=== PATIENT | male | born 1950 | race Two or more races ===

== ENCOUNTER 2019-11-06 00:15 | Inpatient (IN) | payer MEDICAID ==
[~2019-11-06] VITALS: Ht 170.2 cm; Wt 62.4 kg
[~2019-11-06 00:15] MED LIST: ASPI81TA39 PO; FERR-89 PO; INSU100C4 SQ; NOCURR; OMEP20 PO; VICOT
[2019-11-06 01:24] LABS: GLUCOSE,POINT OF CARE 49 MG/DL (70-110)
[2019-11-06] MEDS ORDERED: DEXTROSE 50%-WATER 25 GM/50 ML SYRINGE IVP ONE ×2 (01:27→02:30)
[2019-11-06 02:24] LABS: BASOPHILS % (AUTO) 0.8 % (0.0-2.0); EOSINOPHILS % (AUTO) 2.6 % (1.0-6.0); HEMATOCRIT 35.1 % (41-53); HEMOGLOBIN 11.7 g/dL (13.5-17.5); LYMPHOCYTES # (AUTO) 1.9 K/uL (1.0-4.8); LYMPHOCYTES % (AUTO) 22.5 % (22.0-44.0); MEAN CORPUSCULAR HEMOGLOBIN 28.9 pg (26.0-34.0); MEAN CORPUSCULAR HGB CONC 33.3 G/dL (31.0-37.0); MEAN CORPUSCULAR VOLUME 87 fL (80-100); MONOCYTES # (AUTO) 0.4 K/uL (0.1-1.0); MONOCYTES % (AUTO) 5.3 % (2.0-9.0); NEUTROPHILS # (AUTO) 5.7 K/uL (1.8-7.7); NEUTROPHILS % (AUTO) 68.8 % (40.0-70.0); PLATELET COUNT (AUTO) 231 K/uL (150-450); RED BLOOD CELL COUNT(AUTO) 4.04 MIL/uL (4.50-5.90); RED CELL DISTRIBUTION WIDTH 14.2 % (11.5-14.5)
[2019-11-06 02:28] LABS: GLUCOSE,POINT OF CARE 155 MG/DL (70-110)
[2019-11-06 02:33] LABS: CALCIUM, TOTAL 8.3 mg/dL (8.8-10.5); CREATININE 1.5 mg/dL (0.60-1.30); POTASSIUM 5.1 mmol/L (3.5-5.1)
[2019-11-06 02:36] LABS: PROTHROMBIN TIME 10.1 SEC (9.4-11.6)
[2019-11-06 02:57] LABS: ALBUMIN 3.3 g/dL (3.4-5.0); BILIRUBIN,TOTAL 0.3 mg/dL (0.1-1.0); TOTAL PROTEIN, SERUM 7.3 g/dL (6.4-8.2)
[2019-11-06] MEDS ORDERED: ASPIRIN 325 MG TABLET PO ONE (03:30)
[2019-11-06] MEDS ORDERED: 0.9% SODIUM CHLORIDE 10 ML SYRINGE IVP PRN (03:45)
[2019-11-06] MEDS ORDERED: ONDANSETRON HCL 4 MG/2 ML VIAL IVP PRN (03:45)
[2019-11-06] MEDS ORDERED: ACETAMINOPHEN 325 MG TABLET PO PRN ×2 (03:45→15:15)
[2019-11-06 05:18] LABS: GLUCOSE,POINT OF CARE 106 MG/DL (70-110)
[2019-11-06 09:46] LABS: GLUCOSE,POINT OF CARE 79 MG/DL (70-110)
[2019-11-06 12:11] LABS: GLUCOSE,POINT OF CARE 122 MG/DL (70-110)
[2019-11-06] MEDS ORDERED: NITROGLYCERIN 0.4 MG SUBLINGUAL TABLET #25 SL PRN (15:15)
[2019-11-06] MEDS ORDERED: NITROGLYCERIN 2% (1 GM=INCH) PACKET TP PRN (15:15)
[2019-11-06 16:03] VITALS: BP 151/73
[2019-11-06] MEDS: ASPIRIN 81 MG CHEWABLE TABLET PO SCH (16:08)
[2019-11-06] MEDS: DOCUSATE SODIUM 100 MG CAPSULE PO SCH (16:09)
[2019-11-06] MEDS ORDERED: PNEUMOCOCCAL VACCINE POLYVALENT 0.5 ML VIAL [PPSV23] IM ONE (19:30)
[2019-11-06 20:00] VITALS: BP 143/71
[2019-11-06 20:01] LABS: GLUCOMETER DEV NAME(LOC) 5S.2A; GLUCOSE,POINT OF CARE 101 MG/DL (70-110)
[2019-11-07] VITALS (7 sets, daily range): BP systolic 113–147; BP diastolic 51–63
[2019-11-07 00:25] LABS: AMPHET/METH SCREEN,URINE NEGATIVE (NEGATIVE); BARBITURATE SCREEN, URINE NEGATIVE (NEGATIVE); BENZODIAZEPINES SCREEN,URINE NEGATIVE (NEGATIVE); CANNABINOID SCREEN,URINE NEGATIVE (NEGATIVE); COCAINE SCREEN,URINE NEGATIVE (NEGATIVE); METHADONE SCREEN, URINE NEGATIVE (NEGATIVE); OPIATE SCREEN,URINE NEGATIVE (NEGATIVE); PHENCYCLIDINE SCREEN,URINE NEGATIVE (NEGATIVE)
[2019-11-07 01:13] LABS: GLUCOMETER DEV NAME(LOC) 5S.2A; GLUCOSE,POINT OF CARE 185 MG/DL (70-110)
[2019-11-07 06:05] LABS: GLUCOMETER DEV NAME(LOC) 5N.2; GLUCOSE,POINT OF CARE 117 MG/DL (70-110)
[2019-11-07 07:20] LABS: HEMOGLOBIN A1C 6.5 % (3.8-5.6)
[2019-11-07 07:22] LABS: BASOPHILS % (AUTO) 1.1 % (0.0-2.0); EOSINOPHILS % (AUTO) 6.9 % (1.0-6.0); HEMATOCRIT 30.1 % (41-53); LYMPHOCYTES # (AUTO) 3.1 K/uL (1.0-4.8); LYMPHOCYTES % (AUTO) 41.8 % (22.0-44.0); MEAN CORPUSCULAR HEMOGLOBIN 29.3 pg (26.0-34.0); MEAN CORPUSCULAR HGB CONC 33.4 G/dL (31.0-37.0); MEAN CORPUSCULAR VOLUME 88 fL (80-100); MONOCYTES # (AUTO) 0.6 K/uL (0.1-1.0); MONOCYTES % (AUTO) 8.3 % (2.0-9.0); NEUTROPHILS # (AUTO) 3.1 K/uL (1.8-7.7); NEUTROPHILS % (AUTO) 41.9 % (40.0-70.0); PLATELET COUNT (AUTO) 205 K/uL (150-450); RED BLOOD CELL COUNT(AUTO) 3.43 MIL/uL (4.50-5.90); RED CELL DISTRIBUTION WIDTH 14.2 % (11.5-14.5)
[2019-11-07 07:36] LABS: CALCIUM, TOTAL 8.2 mg/dL (8.8-10.5); CHOL/HDL RATIO 2.5 (4.2-7.3); CREATININE 1.55 mg/dL (0.60-1.30); POTASSIUM 4.7 mmol/L (3.5-5.1)
[2019-11-07] MEDS: ASPIRIN 81 MG CHEWABLE TABLET PO SCH (09:07)
[2019-11-07] MEDS: DOCUSATE SODIUM 100 MG CAPSULE PO SCH (09:07)
[2019-11-07 20:25] LABS: GLUCOMETER DEV NAME(LOC) 5S.2A; GLUCOSE,POINT OF CARE 162 MG/DL (70-110)
[2019-11-08 04:30] VITALS: BP 145/84
[2019-11-08 07:01] LABS: BASOPHILS % (AUTO) 0.9 % (0.0-2.0); EOSINOPHILS % (AUTO) 8.5 % (1.0-6.0); HEMATOCRIT 31.1 % (41-53); HEMOGLOBIN 10.4 g/dL (13.5-17.5); LYMPHOCYTES # (AUTO) 3.2 K/uL (1.0-4.8); LYMPHOCYTES % (AUTO) 40.1 % (22.0-44.0); MEAN CORPUSCULAR HEMOGLOBIN 29.2 pg (26.0-34.0); MEAN CORPUSCULAR HGB CONC 33.5 G/dL (31.0-37.0); MEAN CORPUSCULAR VOLUME 87 fL (80-100); MONOCYTES # (AUTO) 0.7 K/uL (0.1-1.0); MONOCYTES % (AUTO) 8.1 % (2.0-9.0); NEUTROPHILS # (AUTO) 3.4 K/uL (1.8-7.7); NEUTROPHILS % (AUTO) 42.4 % (40.0-70.0); PLATELET COUNT (AUTO) 206 K/uL (150-450); RED BLOOD CELL COUNT(AUTO) 3.57 MIL/uL (4.50-5.90); RED CELL DISTRIBUTION WIDTH 13.8 % (11.5-14.5)
[2019-11-08 07:18] VITALS: BP 115/52
[2019-11-08 07:24] LABS: CALCIUM, TOTAL 8.1 mg/dL (8.8-10.5); CREATININE 1.39 mg/dL (0.60-1.30); POTASSIUM 4.4 mmol/L (3.5-5.1)
[2019-11-08] MEDS: MULTIVITAMINS WITH MINERALS, THERAPEUTIC TABLET PO SCH (09:55)
[2019-11-08] MEDS: DOCUSATE SODIUM 100 MG CAPSULE PO SCH (09:56)
[2019-11-08] MEDS: ASPIRIN 81 MG CHEWABLE TABLET PO SCH (09:56)
[2019-11-08 11:11] VITALS: BP 150/70
[2019-11-08 15:42] VITALS: BP 151/67
[2019-11-08 18:17] LABS: APPEARANCE,URINE CLEAR (CLEAR); BILIRUBIN,URINE NEGATIVE (NEGATIVE); GLUCOSE, URINE (UA) NEGATIVE (NEGATIVE); KETONES,URINE NEGATIVE (NEGATIVE); LEUKOCYTE ESTERASE ,URINE NEGATIVE (NEGATIVE); NITRATE,URINE NEGATIVE (NEGATIVE); OCCULT BLOOD,URINE NEGATIVE (NEGATIVE); PROTEIN,URINE SEE CONFIRM (NEGATIVE); UROBILINOGEN,URINE 0.2 mg/dL (<=1.0)
[2019-11-08 18:34] LABS: SULFOSALICYLIC ACID,URINE 4+ (Negative)
[2019-11-08 18:35] LABS: BACTERIA,URINE None Seen /HPF (None Seen); RBC,URINE None Seen /HPF (0-2); SQUAMOUS EPITHELIAL CELL,UR Rare /LPF (None Seen); WBC,URINE None Seen /HPF (0-5)
[2019-11-08 19:31] LABS: GLUCOMETER DEV NAME(LOC) 5S.2A; GLUCOSE,POINT OF CARE 190 MG/DL (70-110)
[2019-11-08 19:31] LABS: GLUCOMETER DEV NAME(LOC) 5N.2; GLUCOSE,POINT OF CARE 110 MG/DL (70-110)
[2019-11-08 20:08] VITALS: BP 136/61
[2019-11-08 20:15] VITALS: BP 133/68
[2019-11-08 21:39] LABS: GLUCOMETER DEV NAME(LOC) 5S.2A; GLUCOSE,POINT OF CARE 174 MG/DL (70-110)
[2019-11-09] VITALS (11 sets, daily range): BP systolic 113–173; BP diastolic 44–72
[2019-11-09 06:41] LABS: HEMATOCRIT 30.2 % (41-53); HEMOGLOBIN 10.1 g/dL (13.5-17.5); LYMPHOCYTES # (AUTO) 3.3 K/uL (1.0-4.8); LYMPHOCYTES % (AUTO) 42.1 % (22.0-44.0); MEAN CORPUSCULAR HEMOGLOBIN 29.1 pg (26.0-34.0); MEAN CORPUSCULAR HGB CONC 33.3 G/dL (31.0-37.0); MEAN CORPUSCULAR VOLUME 87 fL (80-100); MONOCYTES # (AUTO) 0.5 K/uL (0.1-1.0); NEUTROPHILS # (AUTO) 3.3 K/uL (1.8-7.7); NEUTROPHILS % (AUTO) 41.9 % (40.0-70.0); PLATELET COUNT (AUTO) 200 K/uL (150-450); RED BLOOD CELL COUNT(AUTO) 3.47 MIL/uL (4.50-5.90); RED CELL DISTRIBUTION WIDTH 14.1 % (11.5-14.5)
[2019-11-09 07:05] LABS: GLUCOMETER DEV NAME(LOC) 5S.2A; GLUCOSE,POINT OF CARE 97 MG/DL (70-110)
[2019-11-09 07:18] LABS: CALCIUM, TOTAL 8.3 mg/dL (8.8-10.5); CREATININE 1.76 mg/dL (0.60-1.30); MAGNESIUM 2.4 mg/dL (1.80-2.40)
[2019-11-09] MEDS: DOCUSATE SODIUM 100 MG CAPSULE PO SCH (09:00)
[2019-11-09] MEDS: ASPIRIN 81 MG CHEWABLE TABLET PO SCH (09:21)
[2019-11-09] MEDS: MULTIVITAMINS WITH MINERALS, THERAPEUTIC TABLET PO SCH (09:22)
[2019-11-09] MEDS ORDERED: SESTAMIBI TC99M/UD ISOTOPE 1 EA INJ INJ ONE ×2 (09:50→13:10)
[2019-11-09] MEDS ORDERED: REGADENOSON 0.4 MG/5 ML PF SYRINGE IVP ONE ×2 (12:59→17:19)
[2019-11-09] MEDS ORDERED: INSLAN SQ (14:10)
[2019-11-09] MEDS: SODIUM CHLORIDE 0.45% 1,000 ML IV SCH (16:26)
[2019-11-10 00:51] VITALS: BP 127/62
[2019-11-10 04:11] VITALS: BP 129/64
[2019-11-10] MEDS: SODIUM CHLORIDE 0.45% 1,000 ML IV SCH ×2 (05:05→17:25)
[2019-11-10 06:52] LABS: BASOPHILS % (AUTO) 0.8 % (0.0-2.0); EOSINOPHILS % (AUTO) 7.6 % (1.0-6.0); HEMATOCRIT 28.3 % (41-53); HEMOGLOBIN 9.6 g/dL (13.5-17.5); LYMPHOCYTES # (AUTO) 2.7 K/uL (1.0-4.8); LYMPHOCYTES % (AUTO) 36.7 % (22.0-44.0); MEAN CORPUSCULAR HEMOGLOBIN 29.5 pg (26.0-34.0); MEAN CORPUSCULAR HGB CONC 33.9 G/dL (31.0-37.0); MEAN CORPUSCULAR VOLUME 87 fL (80-100); MONOCYTES # (AUTO) 0.5 K/uL (0.1-1.0); MONOCYTES % (AUTO) 7.5 % (2.0-9.0); NEUTROPHILS # (AUTO) 3.4 K/uL (1.8-7.7); NEUTROPHILS % (AUTO) 47.4 % (40.0-70.0); PLATELET COUNT (AUTO) 190 K/uL (150-450); RED BLOOD CELL COUNT(AUTO) 3.24 MIL/uL (4.50-5.90); RED CELL DISTRIBUTION WIDTH 14.1 % (11.5-14.5)
[2019-11-10 07:07] LABS: ALBUMIN 2.5 g/dL (3.4-5.0); BILIRUBIN,TOTAL 0.2 mg/dL (0.1-1.0); CALCIUM, TOTAL 7.9 mg/dL (8.8-10.5); CREATININE 1.49 mg/dL (0.60-1.30); POTASSIUM 4.5 mmol/L (3.5-5.1); TOTAL PROTEIN, SERUM 5.8 g/dL (6.4-8.2)
[2019-11-10 07:25] VITALS: BP 153/78
[2019-11-10 07:27] LABS: GLUCOMETER DEV NAME(LOC) 5N.2; GLUCOSE,POINT OF CARE 103 MG/DL (70-110)
[2019-11-10 07:28] LABS: GLUCOMETER DEV NAME(LOC) 5N.2; GLUCOSE,POINT OF CARE 200 MG/DL (70-110)
[2019-11-10] MEDS: MULTIVITAMINS WITH MINERALS, THERAPEUTIC TABLET PO SCH (08:40)
[2019-11-10] MEDS: DOCUSATE SODIUM 100 MG CAPSULE PO SCH (08:40)
[2019-11-10] MEDS: ASPIRIN 81 MG CHEWABLE TABLET PO SCH (08:40)
[2019-11-10 10:58] VITALS: BP 148/66
[2019-11-10 12:27] LABS: GLUCOMETER DEV NAME(LOC) 5S.2A; GLUCOSE,POINT OF CARE 225 MG/DL (70-110)
[2019-11-10 16:12] VITALS: BP 151/76
== END 2019-11-10 19:25 | disposition home or self-care (01) | DRG 313 ==
LOC: EMS 00:15 → ICU 03:30 → 5N 03:30 → UNDOADMIN 03:30 → 5S 15:35
PROVIDERS: ADMIT Internal Medicine; ATTEND Internal Medicine
PROC: 3E0234Z Introduction of Serum, Toxoid and Vaccine into Muscle, Percutaneous Approach (ICD-10-PCS; 2019-11-06)
PROC: 4A02XM4 Measurement of Cardiac Total Activity, External Approach (ICD-10-PCS; principal; 2019-11-09)
DX: R07.89 Other chest pain (principal); N17.9 Acute kidney failure, unspecified; E44.0 Moderate protein-calorie malnutrition; E11.649 Type 2 diabetes mellitus with hypoglycemia without coma; N18.3 Chronic kidney disease, stage 3 (moderate); K21.9 Gastro-esophageal reflux disease without esophagitis; D64.9 Anemia, unspecified; E86.0 Dehydration; E78.00 Pure hypercholesterolemia, unspecified; F17.210 Nicotine dependence, cigarettes, uncomplicated; E78.5 Hyperlipidemia, unspecified; I12.9 Hypertensive chronic kidney disease with stage 1 through stage 4 chronic kidney disease, or unspecified chronic kidney disease; E11.22 Type 2 diabetes mellitus with diabetic chronic kidney disease; F10.10 Alcohol abuse, uncomplicated; Y90.9 Presence of alcohol in blood, level not specified; Z68.21 Body mass index [BMI] 21.0-21.9, adult; Z83.3 Family history of diabetes mellitus; Z59.0 Homelessness; Z23 Encounter for immunization
CPT/HCPCS: 78452; 80307; 83036; 83735; 90732; 93005; 93017; 93306; A9500; J2785

== ENCOUNTER 2022-10-27 00:51 | Inpatient (IN) | payer MEDICAID ==
[~2022-10-27] VITALS: Ht 170.2 cm; Wt 51.3 kg
[~2022-10-27 00:51] MED LIST changes: -FERR-89 PO; +FERR325T27 PO; +INSLAN SQ; -INSU100C4 SQ; -NOCURR; -VICOT
[2022-10-27] MEDS ORDERED: DEXTROSE 50%-WATER 25 GM/50 ML SYRINGE IVP ONE (01:45)
[2022-10-27 01:51] LABS: GLUCOSE,POINT OF CARE 39 MG/DL (70-110)
[2022-10-27 02:35] LABS: BASOPHILS % (AUTO) 0.9 % (0.0-2.0); EOSINOPHILS % (AUTO) 3.6 % (1.0-6.0); HEMATOCRIT 31.6 % (41-53); HEMOGLOBIN 10.3 g/dL (13.5-17.5); LYMPHOCYTES % (AUTO) 16.9 % (22.0-44.0); MEAN CORPUSCULAR HEMOGLOBIN 28.7 pg (26.0-34.0); MEAN CORPUSCULAR HGB CONC 32.6 G/dL (31.0-37.0); MEAN CORPUSCULAR VOLUME 88 fL (80-100); MONOCYTES # (AUTO) 0.5 K/uL (0.1-1.0); MONOCYTES % (AUTO) 8.6 % (2.0-9.0); NEUTROPHILS # (AUTO) 4.2 K/uL (1.8-7.7); PLATELET COUNT (AUTO) 204 K/uL (150-450); RED BLOOD CELL COUNT(AUTO) 3.59 MIL/uL (4.50-5.90); RED CELL DISTRIBUTION WIDTH 14.6 % (11.5-14.5)
[2022-10-27 02:48] LABS: CALCIUM, TOTAL 8.7 mg/dL (8.8-10.5); CREATININE 3.39 mg/dL (0.60-1.30); POTASSIUM 4.9 mmol/L (3.5-5.1)
[2022-10-27 02:51] LABS: GLUCOSE,POINT OF CARE 96 MG/DL (70-110)
[2022-10-27 02:54] LABS: ALBUMIN 3.1 g/dL (3.4-5.0); BILIRUBIN,TOTAL 0.2 mg/dL (0.1-1.0); TOTAL PROTEIN, SERUM 7.3 g/dL (6.4-8.2)
[2022-10-27] MEDS ORDERED: NiCARDipine HCL 25 MG in SODIUM CHLORIDE 0.9% 240 ML IV PRN (03:30)
[2022-10-27] MEDS ORDERED: ACETAMINOPHEN 325 MG TABLET PO PRN (03:30)
[2022-10-27] MEDS ORDERED: LABETALOL HCL 5 MG/ML 20 ML VIAL IVP ONE (03:30)
[2022-10-27] MEDS ORDERED: ONDANSETRON HCL 4 MG/2 ML VIAL IVP PRN (03:30)
[2022-10-27 04:24] LABS: COVID AG,FIA SOURCE NASAL SWAB
[2022-10-27 07:41] LABS: GLUCOSE,POINT OF CARE 87 MG/DL (70-110)
[2022-10-27] MEDS ORDERED: CloNIDine HCL 0.1 MG TABLET PO PRN (08:00)
[2022-10-27] MEDS: LOSARTAN POTASSIUM 25 MG TABLET PO SCH ×2 (09:18→21:28)
[2022-10-27] MEDS: AmLODIPine BESYLATE 10 MG TABLET PO SCH (09:19)
[2022-10-27] MEDS: OMEPRAZOLE 20 MG CAPSULE PO SCH (09:19)
[2022-10-27] MEDS: FERROUS SULFATE 325 MG EC TABLET PO SCH ×2 (09:19→17:11)
[2022-10-27] MEDS: ASPIRIN 81 MG CHEWABLE TABLET PO SCH (09:19)
[2022-10-27 09:31] LABS: GLUCOSE,POINT OF CARE 113 MG/DL (70-110)
[2022-10-27 12:51] LABS: GLUCOSE,POINT OF CARE 74 MG/DL (70-110)
[2022-10-27 21:25] VITALS: BP 148/62
[2022-10-28 00:49] VITALS: BP 124/57
[2022-10-28 04:17] VITALS: BP 116/49
[2022-10-28 07:44] VITALS: BP 124/52
[2022-10-28 08:16] LABS: GLUCOMETER DEV NAME(LOC) 5S.1B; GLUCOSE,POINT OF CARE 135 MG/DL (70-110)
[2022-10-28] MEDS: ASPIRIN 81 MG CHEWABLE TABLET PO SCH (08:32)
[2022-10-28] MEDS: LOSARTAN POTASSIUM 25 MG TABLET PO SCH (08:33)
[2022-10-28] MEDS: AmLODIPine BESYLATE 10 MG TABLET PO SCH (08:33)
[2022-10-28] MEDS: FERROUS SULFATE 325 MG EC TABLET PO SCH (08:33)
[2022-10-28] MEDS: OMEPRAZOLE 20 MG CAPSULE PO SCH (08:33)
[2022-10-28] MEDS: HEPARIN SODIUM,PORCINE 5,000 UNITS/ML VIAL SQ SCH ×2 (08:34→16:00)
[2022-10-28 11:40] VITALS: BP 118/58
[2022-10-28 11:42] LABS: GLUCOMETER DEV NAME(LOC) 5N.1C; GLUCOSE,POINT OF CARE 101 MG/DL (70-110)
[2022-10-28] MEDS ORDERED: AMLO-258 PO ×2 (12:21→15:54)
[2022-10-28 15:19] VITALS: BP 120/64
== END 2022-10-28 17:30 | disposition home health service (06) | DRG 199 ==
LOC: EMS 00:52 → AHU 14:41 → 5S 18:56
PROVIDERS: ADMIT Internal Medicine; ATTEND Internal Medicine
DX: I16.1 Hypertensive emergency (principal); E43 Unspecified severe protein-calorie malnutrition; N17.9 Acute kidney failure, unspecified; E11.649 Type 2 diabetes mellitus with hypoglycemia without coma; E11.22 Type 2 diabetes mellitus with diabetic chronic kidney disease; Z20.822 Contact with and (suspected) exposure to COVID-19; F17.210 Nicotine dependence, cigarettes, uncomplicated; F10.10 Alcohol abuse, uncomplicated; I12.9 Hypertensive chronic kidney disease with stage 1 through stage 4 chronic kidney disease, or unspecified chronic kidney disease; E11.51 Type 2 diabetes mellitus with diabetic peripheral angiopathy without gangrene; N18.30 Chronic kidney disease, stage 3 unspecified; E11.65 Type 2 diabetes mellitus with hyperglycemia; Z60.2 Problems related to living alone; M25.551 Pain in right hip; G89.29 Other chronic pain; Z83.3 Family history of diabetes mellitus; Z89.511 Acquired absence of right leg below knee; Z59.00 Homelessness unspecified; Z68.1 Body mass index [BMI] 19.9 or less, adult; Z79.899 Other long term (current) drug therapy; Z79.82 Long term (current) use of aspirin; Z79.4 Long term (current) use of insulin
CPT/HCPCS: 71045; 73502; 80053; 82962; 83690; 84484; 85025; 93005; 99291; G0480; J1644; J3490; J7050; 36415-L1; 36415-TC

== ENCOUNTER 2023-11-24 20:39 | Inpatient (IN) | payer OTHER ==
[~2023-11-24] VITALS: Ht 152.4 cm; Wt 117.4 kg
[~2023-11-24 20:39] MED LIST changes: -ASPI81TA39 PO; +ATEN-73 PO; -FERR325T27 PO; -INSLAN SQ; -OMEP20 PO
[2023-11-24] MEDS: DEXTROSE 50%-WATER 25 GM/50 ML SYRINGE IVP ONE (21:19)
[2023-11-24 21:21] LABS: GLUCOMETER DEV NAME(LOC) ER.6; GLUCOSE,POINT OF CARE 56 MG/DL (70-110)
[2023-11-24 21:23] LABS: BASOPHILS % (AUTO) 0.9 % (0.0-2.0); EOSINOPHILS % (AUTO) 0.2 % (1.0-6.0); HEMATOCRIT 25.1 % (41-53); HEMOGLOBIN 8.3 g/dL (13.5-17.5); LYMPHOCYTES # (AUTO) 1.1 K/uL (1.0-4.8); LYMPHOCYTES % (AUTO) 19.7 % (22.0-44.0); MEAN CORPUSCULAR HEMOGLOBIN 30.1 pg (26.0-34.0); MEAN CORPUSCULAR VOLUME 91 fL (80-100); MONOCYTES # (AUTO) 0.2 K/uL (0.1-1.0); NEUTROPHILS # (AUTO) 4.1 K/uL (1.8-7.7); NEUTROPHILS % (AUTO) 76.2 % (40.0-70.0); PLATELET COUNT (AUTO) 201 K/uL (150-450); RED BLOOD CELL COUNT(AUTO) 2.76 MIL/uL (4.50-5.90); RED CELL DISTRIBUTION WIDTH 15.4 % (11.5-14.5); WHITE BLOOD COUNT (AUTO) 5.4 K/uL (4.5-11.0)
[2023-11-24 21:33] LABS: CALCIUM, TOTAL 8.3 mg/dL (8.8-10.5); CREATININE 16.15 mg/dL (0.60-1.30); POTASSIUM 4.9 mmol/L (3.5-5.1)
[2023-11-24 21:39] LABS: ALBUMIN 3.2 g/dL (3.4-5.0); BILIRUBIN,TOTAL 0.5 mg/dL (0.1-1.0); TOTAL PROTEIN, SERUM 7.3 g/dL (6.4-8.2); TROPONIN I-HIGH SENSITIVITY 39 ng/L (<76)
[2023-11-24 21:55] LABS: GLUCOMETER DEV NAME(LOC) ER.6; GLUCOSE,POINT OF CARE 198 MG/DL (70-110)
[2023-11-24 22:04] LABS: COVID AG,FIA SOURCE NASAL SWAB
[2023-11-24 22:28] LABS: SARS-COV2 (COVID) ANTIGEN,FIA Negative (Negative)
[2023-11-24] MEDS: SODIUM CHLORIDE 0.9% 1,000 ML IV ONE (22:54)
[2023-11-24 22:58] LABS: APPEARANCE,URINE HAZY (CLEAR); BILIRUBIN,URINE NEGATIVE (NEGATIVE); COLOR,URINE LIGHT YELLOW (YELLOW); GLUCOSE, URINE (UA) 150-200 mg/dL (NEGATIVE); LEUKOCYTE ESTERASE ,URINE NEGATIVE (NEGATIVE); NITRATE,URINE NEGATIVE (NEGATIVE); OCCULT BLOOD,URINE SMALL (NEGATIVE); PROTEIN,URINE >600,SEE CONFIRM mg/dL (NEGATIVE); SPECIFIC GRAVITIY, URINE 1.014 (1.003-1.030); UROBILINOGEN,URINE <=1.0 mg/dL (<=1.0)
[2023-11-24 23:05] LABS: SULFOSALICYLIC ACID,URINE 2+ (Negative)
[2023-11-24 23:06] LABS: BACTERIA,URINE Rare /HPF (None Seen); SQUAMOUS EPITHELIAL CELL,UR Rare /LPF (None Seen); WBC,URINE 0-2 /HPF (0-5)
[2023-11-24] MEDS: AmLODIPine BESYLATE 10 MG TABLET PO SCH (23:15)
[2023-11-24] MEDS ORDERED: ONDANSETRON HCL 4 MG/2 ML VIAL IVP PRN (23:15)
[2023-11-25] VITALS (8 sets, daily range): BP systolic 101–157; BP diastolic 40–78; PULSE 59–82; RESP 18–25; TEMP 97.5–98.6; O2SAT 100
[2023-11-25] MEDS ORDERED: HEPARIN SODIUM,PORCINE 5,000 UNITS/ML VIAL SQ SCH
[2023-11-25] MEDS: NITROGLYCERIN 2% (1 GM=INCH) OINTMENT PACKET TP SCH (00:33)
[2023-11-25] MEDS: DEXTROSE 5%-0.9% SODIUM CHL 1,000 ML IV ONE (00:33)
[2023-11-25 01:01] LABS: % IRON SATURATION 27.6 % (30-44)
[2023-11-25 07:30] LABS: BASOPHILS % (AUTO) 0.3 % (0.0-2.0); EOSINOPHILS % (AUTO) 0 % (1.0-6.0); HEMATOCRIT 22.9 % (41-53); HEMOGLOBIN 7.3 g/dL (13.5-17.5); LYMPHOCYTES # (AUTO) 0.6 K/uL (1.0-4.8); LYMPHOCYTES % (AUTO) 9.2 % (22.0-44.0); MEAN CORPUSCULAR HEMOGLOBIN 29.2 pg (26.0-34.0); MEAN CORPUSCULAR HGB CONC 31.9 G/dL (31.0-37.0); MEAN CORPUSCULAR VOLUME 92 fL (80-100); MONOCYTES # (AUTO) 0.5 K/uL (0.1-1.0); NEUTROPHILS # (AUTO) 5.6 K/uL (1.8-7.7); NEUTROPHILS % (AUTO) 83.5 % (40.0-70.0); PLATELET COUNT (AUTO) 176 K/uL (150-450); RED CELL DISTRIBUTION WIDTH 15.5 % (11.5-14.5); WHITE BLOOD COUNT (AUTO) 6.7 K/uL (4.5-11.0)
[2023-11-25 07:38] LABS: CALCIUM, TOTAL 7.7 mg/dL (8.8-10.5); CREATININE 15.65 mg/dL (0.60-1.30); MAGNESIUM 2.9 mg/dL (1.80-2.40); POTASSIUM 4.8 mmol/L (3.5-5.1)
[2023-11-25] MEDS: DOCUSATE SODIUM 100 MG CAPSULE PO SCH (09:00)
[2023-11-25] MEDS ORDERED: ATROPINE SULFATE 0.1 MG/ML 10 ML SYRINGE IVP ONE (12:00)
[2023-11-25] MEDS: HEPARIN SODIUM,PORCINE 5,000 UNITS/ML VIAL SQ SCH (12:25)
[2023-11-25] MEDS: SODIUM BICARBONATE 650 MG TABLET PO SCH (16:00)
[2023-11-25] MEDS: HEPARIN SODIUM,PORCINE 100 UNITS/ML 5 ML VIAL IVP ONE (19:02)
[2023-11-25] MEDS: PANTOPRAZOLE SODIUM 40 MG/VIAL IVP ONE (23:27)
[2023-11-25] MEDS ORDERED: SODIUM CHLORIDE 0.9% 500 ML IV ONE (23:34)
[2023-11-25] MEDS: PANTOPRAZOLE SODIUM 80 MG in SODIUM CHLORIDE 0.9% 100 ML IV SCH (23:39)
[2023-11-25 23:49] LABS: BASOPHILS % (AUTO) 0.4 % (0.0-2.0); EOSINOPHILS % (AUTO) 0.1 % (1.0-6.0); HEMATOCRIT 22.4 % (41-53); LYMPHOCYTES # (AUTO) 0.6 K/uL (1.0-4.8); LYMPHOCYTES % (AUTO) 8.8 % (22.0-44.0); MEAN CORPUSCULAR HEMOGLOBIN 29.7 pg (26.0-34.0); MEAN CORPUSCULAR HGB CONC 29.1 G/dL (31.0-37.0); MEAN CORPUSCULAR VOLUME 102 fL (80-100); MONOCYTES # (AUTO) 0.5 K/uL (0.1-1.0); MONOCYTES % (AUTO) 7.1 % (2.0-9.0); NEUTROPHILS % (AUTO) 83.6 % (40.0-70.0); PLATELET COUNT (AUTO) 161 K/uL (150-450); RED BLOOD CELL COUNT(AUTO) 2.19 MIL/uL (4.50-5.90); RED CELL DISTRIBUTION WIDTH 16.6 % (11.5-14.5); WHITE BLOOD COUNT (AUTO) 7.1 K/uL (4.5-11.0)
[2023-11-26] VITALS (27 sets, daily range): BP systolic 52–144; BP diastolic 27–71; PULSE 5–100; RESP 15–33; TEMP 93.9–98; O2SAT 99–100
[2023-11-26 00:02] LABS: HEMOGLOBIN 6.5 g/dL (13.5-17.5)
[2023-11-26 00:19] LABS: RBC MORPHOLOGY COMMENT ABNORMAL RBC MORPH
[2023-11-26 01:21] LABS: ABG BASE EXCESS -35.3 mmol/L (-2.0-3.0); ABG CARBOXYHEMOGLOBIN 0.3 % (0.0-1.5); ABG METHEMOGLOBIN 0.5 % (0.0-1.5); ABG OXYGEN CONTENT 8.4 mL/dL (15.0-23.0); ABG OXYGEN SATURATION 87.7 % (95.0-98.0); ABG PCO2 23 mmHg (35-45); PO2, ARTERIAL BG 82.6 mmHg (75.0-83.0); SOURCE, BLOOD GAS ARTERIAL; TEMPERATURE, FAHRENHEIT, BG 98.6 FAHREN (96.0-98.6)
[2023-11-26 01:22] LABS: ABG HCO3 0.9 mmol/L (22.0-26.0); ABG PH 6.609 (7.35-7.450); ABG TOTAL HEMOGLOBIN 6.7 G/dL (12.0-18.0); ALLEN TEST, BLOOD GAS Positive; O2 DEVICE,BLOOD GAS BIPAP (ROOM AIR); SITE, BLOOD GAS LFT RADIAL
[2023-11-26] MEDS ORDERED: SODIUM BICARBONATE [ADULT] 8.4% 50 MEQ/50 ML SYRINGE IVP ONE (01:30)
[2023-11-26] MEDS: SODIUM BICARBONATE [ADULT] 8.4% 50 MEQ/50 ML SYRINGE IVP ONE ×2 (01:42→02:41)
[2023-11-26] MEDS: NOREPINEPHRINE 8 MG/0.9 % NACL 250 ML IV PRN (01:43)
[2023-11-26] MEDS: ATROPINE SULFATE 0.1 MG/ML 10 ML SYRINGE IVP ONE ×2 (01:43→02:53)
[2023-11-26] MEDS ORDERED: SODIUM CHLORIDE 0.9% 250 ML IV ONE ×2 (01:50→02:07)
[2023-11-26] MEDS: ETOMIDATE 2 MG/ML 10 ML VIAL IVP ONE (02:00)
[2023-11-26] MEDS: ROCURONIUM BROMIDE 10 MG/ML 5 ML VIAL IVP ONE (02:00)
[2023-11-26] MEDS: SODIUM BICARBONATE 150 MEQ in DEXTROSE 5%-0.45% SODIUM CHL 1,000 ML IV SCH (02:02)
[2023-11-26] MEDS: DESMOPRESSIN ACETATE 20 MCG in SODIUM CHLORIDE 0.9% 50 ML IV ONE (02:12)
[2023-11-26] MEDS ORDERED: DOPamine 400MG/D5W[STANDARD] 250 ML IV ONE (02:24)
[2023-11-26 02:26] LABS: ABG BASE EXCESS -30.9 mmol/L (-2.0-3.0); ABG CARBOXYHEMOGLOBIN 0.3 % (0.0-1.5); ABG METHEMOGLOBIN 0.4 % (0.0-1.5); ABG OXYGEN CONTENT 10.7 mL/dL (15.0-23.0); ABG OXYGEN SATURATION 99.7 % (95.0-98.0); ABG PCO2 24 mmHg (35-45); PO2, ARTERIAL BG 560.6 mmHg (75.0-83.0); TEMPERATURE, FAHRENHEIT, BG 97.6 FAHREN (96.0-98.6)
[2023-11-26 02:27] LABS: ABG A-A DIFF O2 130.3 mmHg (10-20.0); ABG HCO3 3.4 mmol/L (22.0-26.0); ABG PH 6.801 (7.35-7.450); ABG TOTAL HEMOGLOBIN 6.5 G/dL (12.0-18.0); ALLEN TEST, BLOOD GAS Positive; O2 DEVICE,BLOOD GAS VENTILATOR (ROOM AIR); SITE, BLOOD GAS LFT RADIAL; SOURCE, BLOOD GAS ARTERIAL; VT, ABG 350 ml
[2023-11-26 02:28] LABS: PEEP,BG 5 cm H2O; SPONTANEOUS VT, BG 384 ml
[2023-11-26] MEDS ORDERED: PHENYLEPHRINE 200 MG/D5%-WATER 250 ML IV PRN (02:30)
[2023-11-26] MEDS ORDERED: VASOPRESSIN 40 UNITS in DEXTROSE 5%-WATER 98 ML IV PRN (02:30)
[2023-11-26 02:36] LABS: GLUCOMETER DEV NAME(LOC) 5N.2C; GLUCOSE,POINT OF CARE 152 MG/DL (70-110)
[2023-11-26 02:36] LABS: GLUCOMETER DEV NAME(LOC) 5N.2C; GLUCOSE,POINT OF CARE 194 MG/DL (70-110)
[2023-11-26 02:37] LABS: GLUCOMETER DEV NAME(LOC) 5N.2C; GLUCOSE,POINT OF CARE 124 MG/DL (70-110)
[2023-11-26] MEDS: DOPamine 400MG/D5W[STANDARD] 250 ML IV PRN (02:42)
[2023-11-26] MEDS: PHENYLEPHRINE 200 MG/D5%-WATER 250 ML IV PRN (02:43)
[2023-11-26] MEDS: VASOPRESSIN 40 UNITS in DEXTROSE 5%-WATER 98 ML IV PRN (02:43)
[2023-11-26] MEDS: CALCIUM GLUCONATE 100 MG/ML 10 ML IVP ONE (02:52)
[2023-11-26] MEDS ORDERED: PROPOFOL 1000 MG/ISO-OSM 100 ML ONE (03:40)
[2023-11-26] MEDS ORDERED: LORazepam 2 MG/ML VIAL ONE (04:25)
[2023-11-26] MEDS: LORazepam 2 MG/ML VIAL IVP PRN (04:27)
[2023-11-26] MEDS: PROPOFOL 1000 MG/ISO-OSM 100 ML IV PRN (04:27)
[2023-11-26 06:33] LABS: BASOPHILS % (AUTO) 0.4 % (0.0-2.0); EOSINOPHILS % (AUTO) 0.1 % (1.0-6.0); HEMATOCRIT 26.7 % (41-53); HEMOGLOBIN 9.4 g/dL (13.5-17.5); INR 1.1 (0.9-1.1); LYMPHOCYTES # (AUTO) 0.7 K/uL (1.0-4.8); MEAN CORPUSCULAR HEMOGLOBIN 30.6 pg (26.0-34.0); MEAN CORPUSCULAR HGB CONC 35.1 G/dL (31.0-37.0); MEAN CORPUSCULAR VOLUME 87 fL (80-100); MONOCYTES # (AUTO) 0.1 K/uL (0.1-1.0); MONOCYTES % (AUTO) 2.1 % (2.0-9.0); NEUTROPHILS # (AUTO) 1.7 K/uL (1.8-7.7); NEUTROPHILS % (AUTO) 69.4 % (40.0-70.0); PLATELET COUNT (AUTO) 143 K/uL (150-450); PROTHROMBIN TIME 11.3 SEC (9.4-11.6); RED BLOOD CELL COUNT(AUTO) 3.06 MIL/uL (4.50-5.90); RED CELL DISTRIBUTION WIDTH 15.1 % (11.5-14.5); WHITE BLOOD COUNT (AUTO) 2.4 K/uL (4.5-11.0)
[2023-11-26 06:48] LABS: % IRON SATURATION 99.3 % (30-44)
[2023-11-26 07:01] LABS: GLUCOMETER DEV NAME(LOC) ICUN.5; GLUCOSE,POINT OF CARE 106 MG/DL (70-110)
[2023-11-26 07:12] LABS: HEMOGLOBIN A1C 6.2 % (3.8-5.6)
[2023-11-26] MEDS ORDERED: SODIUM BICARBONATE 50 MEQ/50 ML VIAL ONE (07:28)
[2023-11-26] MEDS ORDERED: LIDOCAINE/PF 1% 30 ML VIAL ONE (07:28)
[2023-11-26] MEDS ORDERED: IOHEXOL 300 MG/ML 50 ML VIAL ONE (07:30)
[2023-11-26] MEDS: PANTOPRAZOLE SODIUM 80 MG in SODIUM CHLORIDE 0.9% 100 ML IV SCH (07:31)
[2023-11-26 08:04] LABS: CALCIUM, TOTAL 8.1 mg/dL (8.8-10.5); CREATININE 8.89 mg/dL (0.60-1.30); POTASSIUM 3.8 mmol/L (3.5-5.1)
[2023-11-26 08:11] LABS: ALBUMIN 2.3 g/dL (3.4-5.0); BILIRUBIN,TOTAL 0.7 mg/dL (0.1-1.0); MAGNESIUM 2.2 mg/dL (1.80-2.40); PHOSPHORUS 5.9 mg/dL (2.5-4.9); TOTAL PROTEIN, SERUM 5.3 g/dL (6.4-8.2)
[2023-11-26] MEDS: EPOETIN ALFA 10,000 UNITS/ML VIAL SQ SCH (09:27)
[2023-11-26] MEDS: ALBUMIN HUMAN 5%-12.5GM/250ML 250 ML IV ONE (09:28)
[2023-11-26] MEDS ORDERED: ETOMIDATE 2 MG/ML 10 ML VIAL ONE (12:00)
[2023-11-26] MEDS: INSULIN LISPRO 100 UNITS/ML SQ PRN (13:02)
[2023-11-26 13:54] LABS: CALCIUM, TOTAL 7.4 mg/dL (8.8-10.5); CREATININE 9.08 mg/dL (0.60-1.30); POTASSIUM 3.6 mmol/L (3.5-5.1)
[2023-11-26 13:58] LABS: MAGNESIUM 1.9 mg/dL (1.80-2.40); PHOSPHORUS 5.5 mg/dL (2.5-4.9)
[2023-11-26 15:11] LABS: GLUCOMETER DEV NAME(LOC) ICU.S6; GLUCOSE,POINT OF CARE 155 MG/DL (70-110)
[2023-11-26 19:05] LABS: GLUCOMETER DEV NAME(LOC) ICUN.5; GLUCOSE,POINT OF CARE 132 MG/DL (70-110)
[2023-11-26 20:06] LABS: ABG BASE EXCESS 6.7 mmol/L (-2.0-3.0); ABG CARBOXYHEMOGLOBIN 0.2 % (0.0-1.5); ABG HCO3 30.2 mmol/L (22.0-26.0); ABG METHEMOGLOBIN 2.2 % (0.0-1.5); ABG OXYGEN SATURATION 99.3 % (95.0-98.0); ABG OXYHEMOGLOBIN 96.9 % (94.0-100.0); ABG PCO2 31 mmHg (35-45); ABG PH 7.585 (7.35-7.450); PO2, ARTERIAL BG 166.6 mmHg (75.0-83.0); SOURCE, BLOOD GAS ARTERIAL; TEMPERATURE, FAHRENHEIT, BG 98.6 FAHREN (96.0-98.6)
[2023-11-26 20:10] LABS: ALLEN TEST, BLOOD GAS Positive; O2 DEVICE,BLOOD GAS VENTILATOR (ROOM AIR); PEEP,BG 5 cm H2O; SITE, BLOOD GAS LFT RADIAL; VT, ABG 350 ml
[2023-11-26 21:36] LABS: GLUCOMETER DEV NAME(LOC) ICUN.5; GLUCOSE,POINT OF CARE 152 MG/DL (70-110)
[2023-11-27] VITALS (24 sets, daily range): BP systolic 97–133; BP diastolic 43–59; PULSE 57–71; RESP 14–21; TEMP 96.4–98.5; O2SAT 99–100
[2023-11-27 05:56] LABS: MEAN CORPUSCULAR HEMOGLOBIN 29.8 pg (26.0-34.0); MEAN CORPUSCULAR HGB CONC 34.8 G/dL (31.0-37.0); MEAN CORPUSCULAR VOLUME 86 fL (80-100); PLATELET COUNT (AUTO) 91 K/uL (150-450); RED BLOOD CELL COUNT(AUTO) 2.29 MIL/uL (4.50-5.90); RED CELL DISTRIBUTION WIDTH 14.8 % (11.5-14.5); WHITE BLOOD COUNT (AUTO) 3.4 K/uL (4.5-11.0)
[2023-11-27 06:05] LABS: MAGNESIUM 1.8 mg/dL (1.80-2.40); PHOSPHORUS 4.3 mg/dL (2.5-4.9)
[2023-11-27 06:31] LABS: GLUCOMETER DEV NAME(LOC) ICUN.5; GLUCOSE,POINT OF CARE 111 MG/DL (70-110)
[2023-11-27 06:34] LABS: HEMATOCRIT 19.6 % (41-53); HEMOGLOBIN 6.8 g/dL (13.5-17.5)
[2023-11-27 08:40] LABS: CALCIUM, TOTAL 6.6 mg/dL (8.8-10.5); CREATININE 9.42 mg/dL (0.60-1.30); POTASSIUM 3.4 mmol/L (3.5-5.1)
[2023-11-27] MEDS ORDERED: SODIUM CHLORIDE 0.9% 500 ML IV ONE (08:46)
[2023-11-27 08:57] LABS: BAND NEUTROPHILS % (MANUAL) 9 % (0-5); LYMPHOCYTES % (MANUAL) 31 % (22-44); MONOCYTES % (MANUAL) 1 % (2-9); RBC MORPHOLOGY COMMENT NORMAL RBC MORPH; SEGMENTED NEUTROPHILS % 59 % (40-70); TOTAL CELLS COUNTED 100
[2023-11-27 13:06] LABS: GLUCOMETER DEV NAME(LOC) ICU.S6; GLUCOSE,POINT OF CARE 143 MG/DL (70-110)
[2023-11-27] MEDS: CefTRIAXone SODIUM 2 GM in DEXTROSE 5%-WATER 50 ML IV SCH (16:11)
[2023-11-27 20:10] LABS: GLUCOMETER DEV NAME(LOC) ICU.S6; GLUCOSE,POINT OF CARE 133 MG/DL (70-110)
[2023-11-27 20:56] LABS: GLUCOMETER DEV NAME(LOC) ICUN.5; GLUCOSE,POINT OF CARE 95 MG/DL (70-110)
[2023-11-27] MEDS: PANTOPRAZOLE SODIUM 40 MG/VIAL IVP SCH (21:13)
[2023-11-27] MEDS: DEXMEDETOMIDINE HCL 400 MCG in SODIUM CHLORIDE 0.9% 96 ML IV PRN (21:14)
[2023-11-28] VITALS (17 sets, daily range): BP systolic 107–197; BP diastolic 43–100; PULSE 53–84; RESP 10–25; TEMP 95.6–97.5; O2SAT 100
[2023-11-28 06:21] LABS: HEMATOCRIT 21.5 % (41-53); HEMOGLOBIN 7.5 g/dL (13.5-17.5); MEAN CORPUSCULAR HEMOGLOBIN 30.8 pg (26.0-34.0); MEAN CORPUSCULAR HGB CONC 34.8 G/dL (31.0-37.0); MEAN CORPUSCULAR VOLUME 88 fL (80-100); PLATELET COUNT (AUTO) 86 K/uL (150-450); RED BLOOD CELL COUNT(AUTO) 2.44 MIL/uL (4.50-5.90); RED CELL DISTRIBUTION WIDTH 15.5 % (11.5-14.5); WHITE BLOOD COUNT (AUTO) 7.6 K/uL (4.5-11.0)
[2023-11-28] MEDS ORDERED: SODIUM CHLORIDE 0.9% 250 ML IV ONE (06:27)
[2023-11-28 06:34] LABS: CALCIUM, TOTAL 6.4 mg/dL (8.8-10.5); CREATININE 8.7 mg/dL (0.60-1.30); PHOSPHORUS 5.1 mg/dL (2.5-4.9); POTASSIUM 3.4 mmol/L (3.5-5.1)
[2023-11-28 06:36] LABS: GLUCOMETER DEV NAME(LOC) ICU.S6; GLUCOSE,POINT OF CARE 90 MG/DL (70-110)
[2023-11-28 08:24] LABS: BAND NEUTROPHILS % (MANUAL) 30 % (0-5); LYMPHOCYTES % (MANUAL) 23 % (22-44); SEGMENTED NEUTROPHILS % 47 % (40-70); TOTAL CELLS COUNTED 100
[2023-11-28 08:25] LABS: RBC MORPHOLOGY COMMENT NORMAL RBC MORPH
[2023-11-28] MEDS: DEXTROSE 5%-0.45% SODIUM CHL 1,000 ML IV SCH (09:27)
[2023-11-28 11:42] LABS: ABG A-A DIFF O2 58.8 mmHg (10-20.0); ABG BASE EXCESS 8.3 mmol/L (-2.0-3.0); ABG CARBOXYHEMOGLOBIN 0.3 % (0.0-1.5); ABG HCO3 31.4 mmol/L (22.0-26.0); ABG METHEMOGLOBIN 0.3 % (0.0-1.5); ABG OXYGEN CONTENT 13.7 mL/dL (15.0-23.0); ABG OXYGEN SATURATION 98.9 % (95.0-98.0); ABG OXYHEMOGLOBIN 98.3 % (94.0-100.0); ABG PCO2 39 mmHg (35-45); ABG PH 7.519 (7.35-7.450); ABG TOTAL HEMOGLOBIN 9.7 G/dL (12.0-18.0); ALLEN TEST, BLOOD GAS Positive; O2 DEVICE,BLOOD GAS VENTILATOR (ROOM AIR); PEEP,BG 5 cm H2O; PO2, ARTERIAL BG 146.6 mmHg (75.0-83.0); PRESSURE SUPPORT, BG 5 cm H2O; SITE, BLOOD GAS RT RADIAL; SOURCE, BLOOD GAS ARTERIAL; SPONTANEOUS VT, BG 326 ml; TEMPERATURE, FAHRENHEIT, BG 95.9 FAHREN (96.0-98.6); VENT MODE, BG Press. Support Vent. (ROOM AIR)
[2023-11-28] MEDS ORDERED: HEPARIN SODIUM,PORCINE 1,000 UNITS/ML VIAL IVP ONE ×2 (14:41→16:57)
[2023-11-28] MEDS: HydrALAZINE HCL 20 MG/ML VIAL IVP PRN (15:04)
[2023-11-28] MEDS: LABETALOL HCL 5 MG/ML 20 ML VIAL IVP PRN (17:14)
[2023-11-28 18:05] LABS: GLUCOMETER DEV NAME(LOC) ICU.S6; GLUCOSE,POINT OF CARE 103 MG/DL (70-110)
[2023-11-28 21:31] LABS: GLUCOMETER DEV NAME(LOC) ICUN.5; GLUCOSE,POINT OF CARE 83 MG/DL (70-110)
[2023-11-28 22:40] LABS: GLUCOMETER DEV NAME(LOC) ICU.S6; GLUCOSE,POINT OF CARE 87 MG/DL (70-110)
[2023-11-29] VITALS (16 sets, daily range): BP systolic 121–179; BP diastolic 43–101; PULSE 49–88; RESP 14–19; TEMP 92.4–98.9
[2023-11-29 06:38] LABS: MAGNESIUM 1.9 mg/dL (1.80-2.40); PHOSPHORUS 4.1 mg/dL (2.5-4.9)
[2023-11-29 07:01] LABS: GLUCOMETER DEV NAME(LOC) ICUN.5; GLUCOSE,POINT OF CARE 100 MG/DL (70-110)
[2023-11-29 09:33] LABS: BASOPHILS % (AUTO) 0.7 % (0.0-2.0); EOSINOPHILS % (AUTO) 1.5 % (1.0-6.0); HEMATOCRIT 29.7 % (41-53); LYMPHOCYTES # (AUTO) 1.1 K/uL (1.0-4.8); LYMPHOCYTES % (AUTO) 11.7 % (22.0-44.0); MEAN CORPUSCULAR HEMOGLOBIN 30.7 pg (26.0-34.0); MEAN CORPUSCULAR HGB CONC 33.7 G/dL (31.0-37.0); MEAN CORPUSCULAR VOLUME 91 fL (80-100); MONOCYTES # (AUTO) 0.4 K/uL (0.1-1.0); MONOCYTES % (AUTO) 4.3 % (2.0-9.0); NEUTROPHILS # (AUTO) 7.6 K/uL (1.8-7.7); NEUTROPHILS % (AUTO) 81.8 % (40.0-70.0); PLATELET COUNT (AUTO) 86 K/uL (150-450); RED BLOOD CELL COUNT(AUTO) 3.26 MIL/uL (4.50-5.90); RED CELL DISTRIBUTION WIDTH 15.7 % (11.5-14.5); WHITE BLOOD COUNT (AUTO) 9.3 K/uL (4.5-11.0)
[2023-11-29 09:43] LABS: CALCIUM, TOTAL 7.9 mg/dL (8.8-10.5); CREATININE 4.58 mg/dL (0.60-1.30); POTASSIUM 3.9 mmol/L (3.5-5.1)
[2023-11-29 12:20] LABS: GLUCOMETER DEV NAME(LOC) ICUN.5; GLUCOSE,POINT OF CARE 110 MG/DL (70-110)
[2023-11-29] MEDS: SODIUM CHLORIDE 0.9% 500 ML IV ONE (14:00)
[2023-11-29] MEDS ORDERED: HEPARIN SODIUM,PORCINE 1,000 UNITS/ML VIAL IVP ONE (16:57)
[2023-11-29 20:06] LABS: GLUCOMETER DEV NAME(LOC) ICUN.5; GLUCOSE,POINT OF CARE 102 MG/DL (70-110)
[2023-11-29] MEDS: LABETALOL HCL 5 MG/ML 20 ML VIAL IVP PRN (21:28)
[2023-11-29 21:36] LABS: GLUCOMETER DEV NAME(LOC) ICUN.5; GLUCOSE,POINT OF CARE 90 MG/DL (70-110)
[2023-11-30] VITALS (7 sets, daily range): BP systolic 122–168; BP diastolic 64–84; PULSE 71–80; RESP 16–20; TEMP 96.6–100
[2023-11-30] MEDS ORDERED: SODIUM CHLORIDE 0.9% 1,000 ML ONE (08:26)
[2023-12-01] VITALS (10 sets, daily range): BP systolic 36–195; BP diastolic 58–86; PULSE 71–83; RESP 15–20; TEMP 97.4–98.1
[2023-12-01 08:02] LABS: BASOPHILS % (AUTO) 0.5 % (0.0-2.0); EOSINOPHILS % (AUTO) 4.2 % (1.0-6.0); HEMATOCRIT 28.9 % (41-53); HEMOGLOBIN 9.8 g/dL (13.5-17.5); LYMPHOCYTES % (AUTO) 18.5 % (22.0-44.0); MEAN CORPUSCULAR HEMOGLOBIN 30.7 pg (26.0-34.0); MEAN CORPUSCULAR VOLUME 90 fL (80-100); MONOCYTES # (AUTO) 0.8 K/uL (0.1-1.0); MONOCYTES % (AUTO) 14.3 % (2.0-9.0); NEUTROPHILS # (AUTO) 3.4 K/uL (1.8-7.7); NEUTROPHILS % (AUTO) 62.5 % (40.0-70.0); PLATELET COUNT (AUTO) 92 K/uL (150-450); RED CELL DISTRIBUTION WIDTH 15.3 % (11.5-14.5); WHITE BLOOD COUNT (AUTO) 5.4 K/uL (4.5-11.0)
[2023-12-01 08:06] LABS: CALCIUM, TOTAL 7.3 mg/dL (8.8-10.5); CREATININE 4.14 mg/dL (0.60-1.30)
[2023-12-01 14:41] LABS: TROPONIN I-HIGH SENSITIVITY 699 ng/L (<76)
[2023-12-01] MEDS: METOPROLOL SUCCINATE 25 MG ER TABLET PO SCH (15:30)
[2023-12-02] VITALS (16 sets, daily range): BP systolic 121–186; BP diastolic 51–98; PULSE 71–107; RESP 18–20; TEMP 97.4–97.6
[2023-12-02] MEDS: DEXTROSE 50%-WATER 25 GM/50 ML SYRINGE IVP PRN (06:38)
[2023-12-02 07:38] LABS: BASOPHILS % (AUTO) 0.7 % (0.0-2.0); EOSINOPHILS % (AUTO) 4.9 % (1.0-6.0); HEMATOCRIT 32.2 % (41-53); HEMOGLOBIN 10.8 g/dL (13.5-17.5); LYMPHOCYTES # (AUTO) 0.9 K/uL (1.0-4.8); LYMPHOCYTES % (AUTO) 16.8 % (22.0-44.0); MEAN CORPUSCULAR HEMOGLOBIN 30.8 pg (26.0-34.0); MEAN CORPUSCULAR HGB CONC 33.4 G/dL (31.0-37.0); MEAN CORPUSCULAR VOLUME 92 fL (80-100); NEUTROPHILS # (AUTO) 3.1 K/uL (1.8-7.7); NEUTROPHILS % (AUTO) 58.6 % (40.0-70.0); PLATELET COUNT (AUTO) 100 K/uL (150-450); RED BLOOD CELL COUNT(AUTO) 3.49 MIL/uL (4.50-5.90); RED CELL DISTRIBUTION WIDTH 15.4 % (11.5-14.5); WHITE BLOOD COUNT (AUTO) 5.2 K/uL (4.5-11.0)
[2023-12-02 07:52] LABS: CALCIUM, TOTAL 7.5 mg/dL (8.8-10.5); CREATININE 5.31 mg/dL (0.60-1.30); MAGNESIUM 2.1 mg/dL (1.80-2.40); PHOSPHORUS 4.4 mg/dL (2.5-4.9); POTASSIUM 4.1 mmol/L (3.5-5.1)
[2023-12-02 08:00] LABS: TROPONIN I-HIGH SENSITIVITY 784 ng/L (<76)
[2023-12-02] MEDS: DEXTROSE 5%-0.45% SODIUM CHL 1,000 ML IV ONE (12:19)
[2023-12-03] VITALS (8 sets, daily range): BP systolic 120–170; BP diastolic 59–77; PULSE 72–81; RESP 16–19; TEMP 97.1–98.3
[2023-12-03 07:09] LABS: BASOPHILS % (AUTO) 0.6 % (0.0-2.0); EOSINOPHILS % (AUTO) 5.3 % (1.0-6.0); HEMATOCRIT 30.5 % (41-53); HEMOGLOBIN 10.3 g/dL (13.5-17.5); LYMPHOCYTES # (AUTO) 1.1 K/uL (1.0-4.8); LYMPHOCYTES % (AUTO) 21.4 % (22.0-44.0); MEAN CORPUSCULAR HEMOGLOBIN 30.3 pg (26.0-34.0); MEAN CORPUSCULAR HGB CONC 33.8 G/dL (31.0-37.0); MEAN CORPUSCULAR VOLUME 90 fL (80-100); MONOCYTES # (AUTO) 0.9 K/uL (0.1-1.0); MONOCYTES % (AUTO) 16.6 % (2.0-9.0); NEUTROPHILS % (AUTO) 56.1 % (40.0-70.0); PLATELET COUNT (AUTO) 84 K/uL (150-450); RED CELL DISTRIBUTION WIDTH 15.2 % (11.5-14.5); WHITE BLOOD COUNT (AUTO) 5.3 K/uL (4.5-11.0)
[2023-12-03 07:19] LABS: CALCIUM, TOTAL 7.6 mg/dL (8.8-10.5); CREATININE 3.72 mg/dL (0.60-1.30); POTASSIUM 3.8 mmol/L (3.5-5.1)
[2023-12-04] VITALS (16 sets, daily range): BP systolic 106–176; BP diastolic 44–78; PULSE 68–90; RESP 16–19; TEMP 97.3–98.4
[2023-12-04 07:22] LABS: BASOPHILS % (AUTO) 0.7 % (0.0-2.0); EOSINOPHILS % (AUTO) 5.5 % (1.0-6.0); HEMATOCRIT 30.3 % (41-53); HEMOGLOBIN 10.1 g/dL (13.5-17.5); LYMPHOCYTES # (AUTO) 1.3 K/uL (1.0-4.8); LYMPHOCYTES % (AUTO) 19.5 % (22.0-44.0); MEAN CORPUSCULAR HEMOGLOBIN 30.3 pg (26.0-34.0); MEAN CORPUSCULAR HGB CONC 33.4 G/dL (31.0-37.0); MEAN CORPUSCULAR VOLUME 91 fL (80-100); MONOCYTES # (AUTO) 0.9 K/uL (0.1-1.0); MONOCYTES % (AUTO) 14.2 % (2.0-9.0); NEUTROPHILS % (AUTO) 60.1 % (40.0-70.0); PLATELET COUNT (AUTO) 104 K/uL (150-450); RED BLOOD CELL COUNT(AUTO) 3.34 MIL/uL (4.50-5.90); RED CELL DISTRIBUTION WIDTH 15.2 % (11.5-14.5); WHITE BLOOD COUNT (AUTO) 6.7 K/uL (4.5-11.0)
[2023-12-04 07:39] LABS: CALCIUM, TOTAL 7.6 mg/dL (8.8-10.5); CREATININE 4.91 mg/dL (0.60-1.30); POTASSIUM 4.2 mmol/L (3.5-5.1)
[2023-12-04] MEDS: DEXTROSE 5%-0.45% SODIUM CHL 1,000 ML IV SCH (16:02)
[2023-12-04] MEDS ORDERED: HEPARIN SODIUM,PORCINE 1,000 UNITS/ML VIAL IVP ONE (17:56)
[2023-12-04] MEDS ORDERED: MANNITOL 25%-12.5 GM/50 ML VIAL IVP ONE (17:56)
[2023-12-05] VITALS: BP 157/60; PULSE 76; RESP 20; TEMP 97
[2023-12-05 04:00] VITALS: BP 158/55; PULSE 66; RESP 18; TEMP 97.4
[2023-12-05 06:08] LABS: BASOPHILS % (AUTO) 0.7 % (0.0-2.0); EOSINOPHILS % (AUTO) 5.2 % (1.0-6.0); HEMATOCRIT 27.8 % (41-53); HEMOGLOBIN 9.5 g/dL (13.5-17.5); LYMPHOCYTES % (AUTO) 19.6 % (22.0-44.0); MEAN CORPUSCULAR HGB CONC 34.2 G/dL (31.0-37.0); MEAN CORPUSCULAR VOLUME 91 fL (80-100); MONOCYTES # (AUTO) 0.7 K/uL (0.1-1.0); MONOCYTES % (AUTO) 13.3 % (2.0-9.0); NEUTROPHILS % (AUTO) 61.2 % (40.0-70.0); PLATELET COUNT (AUTO) 110 K/uL (150-450); RED BLOOD CELL COUNT(AUTO) 3.06 MIL/uL (4.50-5.90); RED CELL DISTRIBUTION WIDTH 15.3 % (11.5-14.5); WHITE BLOOD COUNT (AUTO) 4.9 K/uL (4.5-11.0)
[2023-12-05 06:15] LABS: CALCIUM, TOTAL 7.4 mg/dL (8.8-10.5); CREATININE 3.6 mg/dL (0.60-1.30); POTASSIUM 3.2 mmol/L (3.5-5.1)
[2023-12-05] MEDS ORDERED: LIDOCAINE/PF 1% 30 ML VIAL ONE (07:10)
[2023-12-05] MEDS ORDERED: SODIUM BICARBONATE 50 MEQ/50 ML VIAL ONE (07:10)
[2023-12-05 07:19] VITALS: BP 126/62; PULSE 67; RESP 18; TEMP 97.5
[2023-12-05] MEDS ORDERED: MIDAZOLAM HCL 2 MG/2 ML VIAL ONE (08:20)
[2023-12-05] MEDS ORDERED: FentaNYL CITRATE PF 100 MCG/2 ML VIAL ONE (08:20)
[2023-12-05] MEDS: LIDOCAINE 1% 30 ML/SOD BICARB 8.4% 4 ML SQ ONE (09:01)
[2023-12-05] MEDS: MIDAZOLAM HCL 2 MG/2 ML VIAL IVP ONE (09:01)
[2023-12-05] MEDS: FentaNYL CITRATE PF 100 MCG/2 ML VIAL IVP ONE (09:02)
[2023-12-05] MEDS: HEPARIN SODIUM,PORCINE 1,000 UNITS/ML VIAL IVCATH ONE (09:03)
[2023-12-05] MEDS: SODIUM CHLORIDE 0.9% 500 ML IV ONE (09:04)
[2023-12-05] MEDS: HEPARIN SODIUM,PORCINE 1,000 UNITS/ML 10 ML VIAL IVP ONE (09:18)
[2023-12-05 11:10] VITALS: BP 130/51; PULSE 61; RESP 19; TEMP 97.8
[2023-12-05 15:12] VITALS: BP 140/52; PULSE 63; RESP 18; TEMP 97.6
[2023-12-05 20:00] VITALS: BP 150/64; PULSE 61; RESP 18; TEMP 97.3
[2023-12-06] VITALS (15 sets, daily range): BP systolic 102–200; BP diastolic 49–146; PULSE 62–80; RESP 18; TEMP 96–98
[2023-12-06 07:17] LABS: BASOPHILS % (AUTO) 0.5 % (0.0-2.0); EOSINOPHILS % (AUTO) 2.8 % (1.0-6.0); HEMATOCRIT 30.2 % (41-53); HEMOGLOBIN 10.1 g/dL (13.5-17.5); LYMPHOCYTES # (AUTO) 1.1 K/uL (1.0-4.8); LYMPHOCYTES % (AUTO) 19.9 % (22.0-44.0); MEAN CORPUSCULAR HEMOGLOBIN 30.4 pg (26.0-34.0); MEAN CORPUSCULAR HGB CONC 33.5 G/dL (31.0-37.0); MEAN CORPUSCULAR VOLUME 91 fL (80-100); MONOCYTES # (AUTO) 0.6 K/uL (0.1-1.0); MONOCYTES % (AUTO) 9.9 % (2.0-9.0); NEUTROPHILS # (AUTO) 3.8 K/uL (1.8-7.7); NEUTROPHILS % (AUTO) 66.9 % (40.0-70.0); PLATELET COUNT (AUTO) 128 K/uL (150-450); RED BLOOD CELL COUNT(AUTO) 3.33 MIL/uL (4.50-5.90); RED CELL DISTRIBUTION WIDTH 15.9 % (11.5-14.5); WHITE BLOOD COUNT (AUTO) 5.7 K/uL (4.5-11.0)
[2023-12-06 07:51] LABS: CALCIUM, TOTAL 7.8 mg/dL (8.8-10.5); CREATININE 4.6 mg/dL (0.60-1.30); POTASSIUM 3.7 mmol/L (3.5-5.1)
[2023-12-06] MEDS ORDERED: SODIUM CHLORIDE 0.9% 2,000 ML ONE (09:00)
[2023-12-06] MEDS: CeFAZolin 1 GM/DEXTROSE 50 ML IV ONE (12:00)
[2023-12-06 12:08] LABS: GLUCOMETER DEV NAME(LOC) 5N.1C; GLUCOSE,POINT OF CARE 92 MG/DL (70-110)
[2023-12-06 12:08] LABS: GLUCOMETER DEV NAME(LOC) 5N.1C; GLUCOSE,POINT OF CARE 96 MG/DL (70-110)
[2023-12-06 12:08] LABS: GLUCOMETER DEV NAME(LOC) 5N.1C; GLUCOSE,POINT OF CARE 85 MG/DL (70-110)
[2023-12-06 12:08] LABS: GLUCOMETER DEV NAME(LOC) 5N.1C; GLUCOSE,POINT OF CARE 70 MG/DL (70-110)
[2023-12-06 12:08] LABS: GLUCOMETER DEV NAME(LOC) 5N.1C; GLUCOSE,POINT OF CARE 99 MG/DL (70-110)
[2023-12-06 12:08] LABS: GLUCOMETER DEV NAME(LOC) 5N.1C; GLUCOSE,POINT OF CARE 89 MG/DL (70-110)
[2023-12-06 12:09] LABS: GLUCOMETER DEV NAME(LOC) 5N.1C; GLUCOSE,POINT OF CARE 66 MG/DL (70-110)
[2023-12-06 12:09] LABS: GLUCOMETER DEV NAME(LOC) 5N.1C; GLUCOSE,POINT OF CARE 139 MG/DL (70-110)
[2023-12-06 12:10] LABS: GLUCOMETER DEV NAME(LOC) 5N.1C; GLUCOSE,POINT OF CARE 106 MG/DL (70-110)
[2023-12-06 12:23] LABS: GLUCOMETER DEV NAME(LOC) 5S.1B; GLUCOSE,POINT OF CARE 97 MG/DL (70-110)
[2023-12-06 12:23] LABS: GLUCOMETER DEV NAME(LOC) 5S.1B; GLUCOSE,POINT OF CARE 105 MG/DL (70-110)
[2023-12-06 12:23] LABS: GLUCOMETER DEV NAME(LOC) 5S.1B; GLUCOSE,POINT OF CARE 108 MG/DL (70-110)
[2023-12-06 12:24] LABS: GLUCOMETER DEV NAME(LOC) 5S.1B; GLUCOSE,POINT OF CARE 49 MG/DL (70-110)
[2023-12-06 12:24] LABS: GLUCOMETER DEV NAME(LOC) 5S.1B; GLUCOSE,POINT OF CARE 56 MG/DL (70-110)
[2023-12-06 12:24] LABS: GLUCOMETER DEV NAME(LOC) 5S.1B; GLUCOSE,POINT OF CARE 73 MG/DL (70-110)
[2023-12-06 12:24] LABS: GLUCOMETER DEV NAME(LOC) 5S.1B; GLUCOSE,POINT OF CARE 95 MG/DL (70-110)
[2023-12-06 12:24] LABS: GLUCOMETER DEV NAME(LOC) 5S.1B; GLUCOSE,POINT OF CARE 122 MG/DL (70-110)
[2023-12-06 12:24] LABS: GLUCOMETER DEV NAME(LOC) 5S.1B; GLUCOSE,POINT OF CARE 102 MG/DL (70-110)
[2023-12-06 12:24] LABS: GLUCOMETER DEV NAME(LOC) 5S.1B; GLUCOSE,POINT OF CARE 99 MG/DL (70-110)
[2023-12-06 12:24] LABS: GLUCOMETER DEV NAME(LOC) 5S.1B; GLUCOSE,POINT OF CARE 72 MG/DL (70-110)
[2023-12-06 12:24] LABS: GLUCOMETER DEV NAME(LOC) 5S.1B; GLUCOSE,POINT OF CARE 155 MG/DL (70-110)
[2023-12-06 12:24] LABS: GLUCOMETER DEV NAME(LOC) 5S.1B; GLUCOSE,POINT OF CARE 63 MG/DL (70-110)
[2023-12-06 12:24] LABS: GLUCOMETER DEV NAME(LOC) 5S.1B; GLUCOSE,POINT OF CARE 112 MG/DL (70-110)
[2023-12-06 12:24] LABS: GLUCOMETER DEV NAME(LOC) 5S.1B; GLUCOSE,POINT OF CARE 44 MG/DL (70-110)
[2023-12-06 12:24] LABS: GLUCOMETER DEV NAME(LOC) 5S.1B; GLUCOSE,POINT OF CARE 72 MG/DL (70-110)
[2023-12-06 12:25] LABS: GLUCOMETER DEV NAME(LOC) 5S.1B; GLUCOSE,POINT OF CARE 109 MG/DL (70-110)
[2023-12-06 12:25] LABS: GLUCOMETER DEV NAME(LOC) 5S.1B; GLUCOSE,POINT OF CARE 169 MG/DL (70-110)
[2023-12-06 12:25] LABS: GLUCOMETER DEV NAME(LOC) 5S.1B; GLUCOSE,POINT OF CARE 75 MG/DL (70-110)
[2023-12-06 12:25] LABS: GLUCOMETER DEV NAME(LOC) 5S.1B; GLUCOSE,POINT OF CARE 75 MG/DL (70-110)
[2023-12-06 12:26] LABS: GLUCOMETER DEV NAME(LOC) 5S.1B; GLUCOSE,POINT OF CARE 102 MG/DL (70-110)
[2023-12-06 12:26] LABS: GLUCOMETER DEV NAME(LOC) 5S.1B; GLUCOSE,POINT OF CARE 107 MG/DL (70-110)
[2023-12-06 12:26] LABS: GLUCOMETER DEV NAME(LOC) 5S.1B; GLUCOSE,POINT OF CARE 79 MG/DL (70-110)
[2023-12-06] MEDS ORDERED: MIDAZOLAM HCL 2 MG/2 ML VIAL ONE ×2 (13:20→14:30)
[2023-12-06] MEDS ORDERED: FentaNYL CITRATE PF 100 MCG/2 ML VIAL ONE (13:20)
[2023-12-06] MEDS ORDERED: CeFAZolin SODIUM 1 GM VIAL ONE (13:41)
[2023-12-06] MEDS: DEXTROSE 10%-WATER 1,000 ML IV SCH (17:53)
[2023-12-07 00:23] VITALS: BP 100/55; PULSE 63; RESP 19; TEMP 97.7
[2023-12-07 04:14] VITALS: BP 124/57; PULSE 70; RESP 19; TEMP 97.4
[2023-12-07 06:30] LABS: BASOPHILS % (AUTO) 1.5 % (0.0-2.0); HEMATOCRIT 26.5 % (41-53); HEMOGLOBIN 9.1 g/dL (13.5-17.5); LYMPHOCYTES # (AUTO) 0.8 K/uL (1.0-4.8); LYMPHOCYTES % (AUTO) 14.9 % (22.0-44.0); MEAN CORPUSCULAR HEMOGLOBIN 31.1 pg (26.0-34.0); MEAN CORPUSCULAR HGB CONC 34.3 G/dL (31.0-37.0); MEAN CORPUSCULAR VOLUME 91 fL (80-100); MONOCYTES # (AUTO) 0.5 K/uL (0.1-1.0); MONOCYTES % (AUTO) 8.4 % (2.0-9.0); NEUTROPHILS # (AUTO) 3.9 K/uL (1.8-7.7); NEUTROPHILS % (AUTO) 70.2 % (40.0-70.0); PLATELET COUNT (AUTO) 122 K/uL (150-450); RED BLOOD CELL COUNT(AUTO) 2.93 MIL/uL (4.50-5.90); RED CELL DISTRIBUTION WIDTH 15.4 % (11.5-14.5); WHITE BLOOD COUNT (AUTO) 5.6 K/uL (4.5-11.0)
[2023-12-07 06:50] LABS: ALBUMIN 1.7 g/dL (3.4-5.0); BILIRUBIN,TOTAL 0.3 mg/dL (0.1-1.0); CALCIUM, TOTAL 6.9 mg/dL (8.8-10.5); CREATININE 2.97 mg/dL (0.60-1.30); POTASSIUM 3.2 mmol/L (3.5-5.1); TOTAL PROTEIN, SERUM 4.8 g/dL (6.4-8.2)
[2023-12-07 07:51] VITALS: BP 137/65; PULSE 72; RESP 19; TEMP 97.8
[2023-12-07 11:21] VITALS: BP 148/70; PULSE 71; RESP 20; TEMP 97.8
[2023-12-07] MEDS ORDERED: HEPARIN SODIUM,PORCINE 1,000 UNITS/ML VIAL IVP ONE (11:39)
[2023-12-07 15:02] VITALS: BP 128/90; PULSE 95; RESP 20; TEMP 98.2
[2023-12-07] MEDS: SODIUM CHLORIDE 0.9% 1,000 ML IV ONE (15:44)
[2023-12-07] MEDS: NYSTATIN 500,000 UNITS/5 ML SUSPENSION UDCUP PO SCH (15:48)
[2023-12-07 18:56] LABS: GLUCOMETER DEV NAME(LOC) 5N.2C; GLUCOSE,POINT OF CARE 168 MG/DL (70-110)
[2023-12-07 18:56] LABS: GLUCOMETER DEV NAME(LOC) 5N.2C; GLUCOSE,POINT OF CARE 64 MG/DL (70-110)
[2023-12-07 18:56] LABS: GLUCOMETER DEV NAME(LOC) 5N.2C; GLUCOSE,POINT OF CARE 70 MG/DL (70-110)
[2023-12-07 18:56] LABS: GLUCOMETER DEV NAME(LOC) 5N.2C; GLUCOSE,POINT OF CARE 145 MG/DL (70-110)
[2023-12-07 18:56] LABS: GLUCOMETER DEV NAME(LOC) 5N.2C; GLUCOSE,POINT OF CARE 75 MG/DL (70-110)
[2023-12-07 19:35] VITALS: BP 152/68; PULSE 70; RESP 19; TEMP 97.9
[2023-12-08] VITALS (7 sets, daily range): BP systolic 128–166; BP diastolic 52–84; PULSE 66–73; RESP 18–20; TEMP 97.4–98.4
[2023-12-08 07:24] LABS: ALBUMIN 2.1 g/dL (3.4-5.0); BILIRUBIN,TOTAL 0.4 mg/dL (0.1-1.0); CALCIUM, TOTAL 7.8 mg/dL (8.8-10.5); CREATININE 3.91 mg/dL (0.60-1.30); POTASSIUM 3.5 mmol/L (3.5-5.1); TOTAL PROTEIN, SERUM 5.8 g/dL (6.4-8.2)
[2023-12-08 07:44] LABS: EOSINOPHILS % (AUTO) 7.1 % (1.0-6.0); HEMOGLOBIN 10.7 g/dL (13.5-17.5); LYMPHOCYTES # (AUTO) 1.2 K/uL (1.0-4.8); LYMPHOCYTES % (AUTO) 21.1 % (22.0-44.0); MEAN CORPUSCULAR HEMOGLOBIN 30.6 pg (26.0-34.0); MEAN CORPUSCULAR HGB CONC 33.5 G/dL (31.0-37.0); MEAN CORPUSCULAR VOLUME 91 fL (80-100); MONOCYTES # (AUTO) 0.5 K/uL (0.1-1.0); MONOCYTES % (AUTO) 7.9 % (2.0-9.0); NEUTROPHILS # (AUTO) 3.7 K/uL (1.8-7.7); NEUTROPHILS % (AUTO) 62.9 % (40.0-70.0); RED CELL DISTRIBUTION WIDTH 16.1 % (11.5-14.5); WHITE BLOOD COUNT (AUTO) 5.8 K/uL (4.5-11.0)
[2023-12-08 08:23] LABS: PLATELET COUNT (AUTO) 163 K/uL (150-450)
[2023-12-08] MEDS: HydrALAZINE HCL 25 MG TABLET GT SCH (13:14)
[2023-12-09] VITALS (19 sets, daily range): BP systolic 104–168; BP diastolic 44–79; PULSE 63–87; RESP 18–21; TEMP 96.8–98
[2023-12-09 07:43] LABS: BASOPHILS % (AUTO) 0.9 % (0.0-2.0); EOSINOPHILS % (AUTO) 7.6 % (1.0-6.0); HEMATOCRIT 26.6 % (41-53); HEMOGLOBIN 8.9 g/dL (13.5-17.5); LYMPHOCYTES # (AUTO) 1.1 K/uL (1.0-4.8); LYMPHOCYTES % (AUTO) 23.4 % (22.0-44.0); MEAN CORPUSCULAR HEMOGLOBIN 30.7 pg (26.0-34.0); MEAN CORPUSCULAR HGB CONC 33.6 G/dL (31.0-37.0); MEAN CORPUSCULAR VOLUME 91 fL (80-100); MONOCYTES # (AUTO) 0.4 K/uL (0.1-1.0); MONOCYTES % (AUTO) 8.8 % (2.0-9.0); NEUTROPHILS # (AUTO) 2.7 K/uL (1.8-7.7); NEUTROPHILS % (AUTO) 59.3 % (40.0-70.0); PLATELET COUNT (AUTO) 147 K/uL (150-450); RED BLOOD CELL COUNT(AUTO) 2.92 MIL/uL (4.50-5.90); RED CELL DISTRIBUTION WIDTH 15.7 % (11.5-14.5); WHITE BLOOD COUNT (AUTO) 4.6 K/uL (4.5-11.0)
[2023-12-09 07:58] LABS: CALCIUM, TOTAL 7.3 mg/dL (8.8-10.5); CREATININE 4.74 mg/dL (0.60-1.30)
[2023-12-09 08:01] LABS: POTASSIUM 2.9 mmol/L (3.5-5.1)
[2023-12-09] MEDS ORDERED: SODIUM CHLORIDE 0.9% 2,000 ML ONE (09:30)
[2023-12-09] MEDS ORDERED: HEPARIN SODIUM,PORCINE 1,000 UNITS/ML VIAL IVP ONE (12:00)
[2023-12-09] MEDS: GLUCAGON,HUMAN RECOMBINANT 1 MG VIAL IVP ONE (16:01)
[2023-12-09] MEDS: POTASSIUM CHLORIDE 10% 40 MEQ/30 ML LIQUID UDCUP PEG ONE (18:34)
[2023-12-10] VITALS (9 sets, daily range): BP systolic 106–132; BP diastolic 53–62; PULSE 65–76; RESP 18–19; TEMP 97.7–98
[2023-12-10] MEDS ORDERED: SODIUM CHLORIDE 0.9% 0 ML ONE (06:20)
[2023-12-10 07:26] LABS: BASOPHILS % (AUTO) 0.8 % (0.0-2.0); HEMATOCRIT 25.8 % (41-53); HEMOGLOBIN 8.7 g/dL (13.5-17.5); LYMPHOCYTES # (AUTO) 0.5 K/uL (1.0-4.8); LYMPHOCYTES % (AUTO) 7.6 % (22.0-44.0); MEAN CORPUSCULAR HEMOGLOBIN 30.8 pg (26.0-34.0); MEAN CORPUSCULAR HGB CONC 33.5 G/dL (31.0-37.0); MEAN CORPUSCULAR VOLUME 92 fL (80-100); MONOCYTES # (AUTO) 0.5 K/uL (0.1-1.0); MONOCYTES % (AUTO) 8.5 % (2.0-9.0); NEUTROPHILS % (AUTO) 82.1 % (40.0-70.0); PLATELET COUNT (AUTO) 96 K/uL (150-450); RED BLOOD CELL COUNT(AUTO) 2.81 MIL/uL (4.50-5.90); RED CELL DISTRIBUTION WIDTH 16.9 % (11.5-14.5); WHITE BLOOD COUNT (AUTO) 6.1 K/uL (4.5-11.0)
[2023-12-10 08:25] LABS: CALCIUM, TOTAL 7.9 mg/dL (8.8-10.5); CREATININE 3.57 mg/dL (0.60-1.30); POTASSIUM 4.2 mmol/L (3.5-5.1)
[2023-12-10 12:21] LABS: GLUCOMETER DEV NAME(LOC) 5S.2C; GLUCOSE,POINT OF CARE 73 MG/DL (70-110)
[2023-12-10 12:21] LABS: GLUCOMETER DEV NAME(LOC) 5S.2C; GLUCOSE,POINT OF CARE 84 MG/DL (70-110)
[2023-12-10 12:22] LABS: GLUCOMETER DEV NAME(LOC) 5S.2C; GLUCOSE,POINT OF CARE 88 MG/DL (70-110)
[2023-12-10 12:26] LABS: GLUCOMETER DEV NAME(LOC) 5S.2C; GLUCOSE,POINT OF CARE 62 MG/DL (70-110)
[2023-12-10 12:26] LABS: GLUCOMETER DEV NAME(LOC) 5S.2C; GLUCOSE,POINT OF CARE 114 MG/DL (70-110)
[2023-12-10 12:26] LABS: GLUCOMETER DEV NAME(LOC) 5S.2C; GLUCOSE,POINT OF CARE 83 MG/DL (70-110)
[2023-12-10 12:27] LABS: GLUCOMETER DEV NAME(LOC) 5N.2C; GLUCOSE,POINT OF CARE 78 MG/DL (70-110)
[2023-12-11] VITALS (14 sets, daily range): BP systolic 105–147; BP diastolic 50–61; PULSE 70–120; RESP 18; TEMP 97–98.3
[2023-12-11 07:38] LABS: EOSINOPHILS % (AUTO) 3.1 % (1.0-6.0); HEMATOCRIT 26.5 % (41-53); HEMOGLOBIN 9.1 g/dL (13.5-17.5); LYMPHOCYTES # (AUTO) 0.9 K/uL (1.0-4.8); LYMPHOCYTES % (AUTO) 12.9 % (22.0-44.0); MEAN CORPUSCULAR HEMOGLOBIN 31.1 pg (26.0-34.0); MEAN CORPUSCULAR HGB CONC 34.2 G/dL (31.0-37.0); MEAN CORPUSCULAR VOLUME 91 fL (80-100); MONOCYTES # (AUTO) 0.7 K/uL (0.1-1.0); MONOCYTES % (AUTO) 10.1 % (2.0-9.0); NEUTROPHILS % (AUTO) 72.9 % (40.0-70.0); PLATELET COUNT (AUTO) 121 K/uL (150-450); RED BLOOD CELL COUNT(AUTO) 2.92 MIL/uL (4.50-5.90); RED CELL DISTRIBUTION WIDTH 17.2 % (11.5-14.5); WHITE BLOOD COUNT (AUTO) 6.8 K/uL (4.5-11.0)
[2023-12-11 08:01] LABS: ALBUMIN 1.7 g/dL (3.4-5.0); ALKALINE PHOSPHATASE 148 U/L (46-116); ANION GAP 9 mmol/L (8-16); ASPARTATE AMINOTRANSFERASE 24 U/L (15-37); BILIRUBIN,TOTAL 0.5 mg/dL (0.1-1.0); CARBON DIOXIDE 23 mmol/L (22-29); CHLORIDE 94 mmol/L (98-107); CREATININE 4.44 mg/dL (0.60-1.30); GLOMERULAR FILTR. RATE CALC 13 mL/min (>60); GLUCOSE,RANDOM 109 mg/dL (70-110); POTASSIUM 3.8 mmol/L (3.5-5.1); SODIUM SERUM 126 mmol/L (136-145); TOTAL PROTEIN, SERUM 4.9 g/dL (6.4-8.2); UREA NITROGEN, BLOOD 17 mg/dL (7-18)
[2023-12-11 08:22] LABS: ALANINE AMINOTRANSFERASE < 6 U/L (12-78)
[2023-12-11] MEDS: HEPARIN SODIUM,PORCINE 1,000 UNITS/ML VIAL IVCATH ONE ×2 (19:24)
[2023-12-11 23:06] LABS: GLUCOMETER DEV NAME(LOC) 5S.1B; GLUCOSE,POINT OF CARE 70 MG/DL (70-110)
[2023-12-11 23:06] LABS: GLUCOMETER DEV NAME(LOC) 5S.1B; GLUCOSE,POINT OF CARE 103 MG/DL (70-110)
[2023-12-11 23:06] LABS: GLUCOMETER DEV NAME(LOC) 5S.1B; GLUCOSE,POINT OF CARE 74 MG/DL (70-110)
[2023-12-11 23:07] LABS: GLUCOMETER DEV NAME(LOC) 5S.1B; GLUCOSE,POINT OF CARE 95 MG/DL (70-110)
[2023-12-11 23:07] LABS: GLUCOMETER DEV NAME(LOC) 5S.1B; GLUCOSE,POINT OF CARE 120 MG/DL (70-110)
[2023-12-11 23:07] LABS: GLUCOMETER DEV NAME(LOC) 5S.1B; GLUCOSE,POINT OF CARE 148 MG/DL (70-110)
[2023-12-11 23:07] LABS: GLUCOMETER DEV NAME(LOC) 5S.1B; GLUCOSE,POINT OF CARE 76 MG/DL (70-110)
[2023-12-11 23:08] LABS: GLUCOMETER DEV NAME(LOC) 5S.1B; GLUCOSE,POINT OF CARE 85 MG/DL (70-110)
[2023-12-11 23:26] LABS: GLUCOMETER DEV NAME(LOC) 4E.2; GLUCOSE,POINT OF CARE 43 MG/DL (70-110)
[2023-12-11 23:26] LABS: GLUCOMETER DEV NAME(LOC) 4E.2; GLUCOSE,POINT OF CARE 146 MG/DL (70-110)
[2023-12-12 01:26] LABS: GLUCOMETER DEV NAME(LOC) 5N.1D; GLUCOSE,POINT OF CARE 103 MG/DL (70-110)
[2023-12-12 01:26] LABS: GLUCOMETER DEV NAME(LOC) 5N.1D; GLUCOSE,POINT OF CARE 106 MG/DL (70-110)
[2023-12-12 01:26] LABS: GLUCOMETER DEV NAME(LOC) 5N.1D; GLUCOSE,POINT OF CARE 101 MG/DL (70-110)
[2023-12-12 01:27] LABS: GLUCOMETER DEV NAME(LOC) 5N.1D; GLUCOSE,POINT OF CARE 159 MG/DL (70-110)
[2023-12-12 05:10] VITALS: BP 120/59; PULSE 83; RESP 18; TEMP 98.2
[2023-12-12 05:51] LABS: GLUCOMETER DEV NAME(LOC) 4E.2; GLUCOSE,POINT OF CARE 110 MG/DL (70-110)
[2023-12-12 07:34] VITALS: BP 126/62; PULSE 84; RESP 18; TEMP 97.8
[2023-12-12 08:18] LABS: CALCIUM, TOTAL 7.7 mg/dL (8.8-10.5); CREATININE 2.96 mg/dL (0.60-1.30); POTASSIUM 3.4 mmol/L (3.5-5.1)
[2023-12-12 10:26] LABS: EOSINOPHILS % (AUTO) 3.1 % (1.0-6.0); HEMATOCRIT 25.9 % (41-53); HEMOGLOBIN 8.6 g/dL (13.5-17.5); LYMPHOCYTES # (AUTO) 1.2 K/uL (1.0-4.8); LYMPHOCYTES % (AUTO) 18.9 % (22.0-44.0); MEAN CORPUSCULAR HEMOGLOBIN 30.2 pg (26.0-34.0); MEAN CORPUSCULAR HGB CONC 33.3 G/dL (31.0-37.0); MEAN CORPUSCULAR VOLUME 91 fL (80-100); MONOCYTES # (AUTO) 0.7 K/uL (0.1-1.0); MONOCYTES % (AUTO) 10.5 % (2.0-9.0); NEUTROPHILS # (AUTO) 4.2 K/uL (1.8-7.7); NEUTROPHILS % (AUTO) 65.5 % (40.0-70.0); PLATELET COUNT (AUTO) 120 K/uL (150-450); RED BLOOD CELL COUNT(AUTO) 2.86 MIL/uL (4.50-5.90); RED CELL DISTRIBUTION WIDTH 17.2 % (11.5-14.5); WHITE BLOOD COUNT (AUTO) 6.4 K/uL (4.5-11.0)
[2023-12-12] MEDS: POTASSIUM CHLORIDE 10% 40 MEQ/30 ML LIQUID UDCUP GT ONE (11:26)
[2023-12-12 12:31] VITALS: BP 145/59; PULSE 78; RESP 20; TEMP 97.7
[2023-12-12 13:10] LABS: GLUCOMETER DEV NAME(LOC) 4E.2; GLUCOSE,POINT OF CARE 92 MG/DL (70-110)
[2023-12-12 15:47] VITALS: BP 140/54; PULSE 75; RESP 18; TEMP 97.9
[2023-12-12] MEDS ORDERED: HEPARIN SODIUM,PORCINE 1,000 UNITS/ML VIAL ONE (17:35)
[2023-12-12 20:02] VITALS: BP 147/62; PULSE 76; RESP 18; TEMP 98.1
[2023-12-12 20:20] LABS: GLUCOMETER DEV NAME(LOC) 4E.2; GLUCOSE,POINT OF CARE 120 MG/DL (70-110)
[2023-12-12 22:55] LABS: GLUCOMETER DEV NAME(LOC) 4E.2; GLUCOSE,POINT OF CARE 120 MG/DL (70-110)
[2023-12-13] VITALS (13 sets, daily range): BP systolic 87–138; BP diastolic 35–73; PULSE 19–82; RESP 18; TEMP 97.1–98
[2023-12-13 07:31] LABS: GLUCOMETER DEV NAME(LOC) 6S.2; GLUCOSE,POINT OF CARE 98 MG/DL (70-110)
[2023-12-13 08:19] LABS: BASOPHILS % (AUTO) 1.7 % (0.0-2.0); EOSINOPHILS % (AUTO) 2.5 % (1.0-6.0); HEMATOCRIT 22.2 % (41-53); HEMOGLOBIN 7.3 g/dL (13.5-17.5); LYMPHOCYTES # (AUTO) 1.4 K/uL (1.0-4.8); LYMPHOCYTES % (AUTO) 22.7 % (22.0-44.0); MEAN CORPUSCULAR HEMOGLOBIN 30.1 pg (26.0-34.0); MEAN CORPUSCULAR VOLUME 91 fL (80-100); MONOCYTES # (AUTO) 0.8 K/uL (0.1-1.0); MONOCYTES % (AUTO) 12.2 % (2.0-9.0); NEUTROPHILS # (AUTO) 3.8 K/uL (1.8-7.7); NEUTROPHILS % (AUTO) 60.9 % (40.0-70.0); PLATELET COUNT (AUTO) 126 K/uL (150-450); RED BLOOD CELL COUNT(AUTO) 2.44 MIL/uL (4.50-5.90); WHITE BLOOD COUNT (AUTO) 6.2 K/uL (4.5-11.0)
[2023-12-13 08:43] LABS: CALCIUM, TOTAL 7.6 mg/dL (8.8-10.5); CREATININE 3.91 mg/dL (0.60-1.30); POTASSIUM 3.6 mmol/L (3.5-5.1)
[2023-12-13] MEDS ORDERED: SODIUM CHLORIDE 0.9% 1,000 ML ONE (09:21)
[2023-12-13] MEDS ORDERED: HEPARIN SODIUM,PORCINE 1,000 UNITS/ML VIAL ONE (12:00)
[2023-12-13] MEDS ORDERED: DiphenhydrAMINE HCL 50 MG/ML VIAL ONE (12:00)
[2023-12-13] MEDS: HEPARIN SODIUM,PORCINE 1,000 UNITS/ML VIAL IVCATH ONE ×2 (14:00→14:02)
[2023-12-13] MEDS: DiphenhydrAMINE HCL 50 MG/ML VIAL IVP PRN (14:03)
[2023-12-13] MEDS: LORazepam 2 MG/ML VIAL IM PRN (17:46)
[2023-12-13 19:00] LABS: GLUCOMETER DEV NAME(LOC) 6S.2; GLUCOSE,POINT OF CARE 93 MG/DL (70-110)
[2023-12-14 00:20] LABS: GLUCOMETER DEV NAME(LOC) 6N.2B; GLUCOSE,POINT OF CARE 116 MG/DL (70-110)
[2023-12-14 04:09] VITALS: BP 136/52; PULSE 65; RESP 18; TEMP 98.2
[2023-12-14 06:50] LABS: GLUCOMETER DEV NAME(LOC) 6N.2B; GLUCOSE,POINT OF CARE 135 MG/DL (70-110)
[2023-12-14 07:46] LABS: CALCIUM, TOTAL 7.6 mg/dL (8.8-10.5); CREATININE 2.73 mg/dL (0.60-1.30); POTASSIUM 3.5 mmol/L (3.5-5.1)
[2023-12-14 07:56] VITALS: BP 139/55; PULSE 65; RESP 18; TEMP 97.9
[2023-12-14 11:34] LABS: BASOPHILS % (AUTO) 2.3 % (0.0-2.0); EOSINOPHILS % (AUTO) 5.2 % (1.0-6.0); HEMATOCRIT 25.5 % (41-53); HEMOGLOBIN 8.1 g/dL (13.5-17.5); LYMPHOCYTES # (AUTO) 1.4 K/uL (1.0-4.8); LYMPHOCYTES % (AUTO) 23.2 % (22.0-44.0); MEAN CORPUSCULAR HEMOGLOBIN 29.6 pg (26.0-34.0); MEAN CORPUSCULAR HGB CONC 31.8 G/dL (31.0-37.0); MEAN CORPUSCULAR VOLUME 93 fL (80-100); MONOCYTES # (AUTO) 0.7 K/uL (0.1-1.0); MONOCYTES % (AUTO) 12.7 % (2.0-9.0); NEUTROPHILS # (AUTO) 3.3 K/uL (1.8-7.7); NEUTROPHILS % (AUTO) 56.6 % (40.0-70.0); PLATELET COUNT (AUTO) 158 K/uL (150-450); RED BLOOD CELL COUNT(AUTO) 2.74 MIL/uL (4.50-5.90); RED CELL DISTRIBUTION WIDTH 17.5 % (11.5-14.5); WHITE BLOOD COUNT (AUTO) 5.8 K/uL (4.5-11.0)
[2023-12-14] MEDS: FOLIC ACID/VIT B COMPLEX AND C TABLET PO SCH (13:47)
[2023-12-14 15:54] VITALS: BP 143/59; PULSE 64; RESP 18; TEMP 97.5
[2023-12-14 18:10] LABS: GLUCOMETER DEV NAME(LOC) 6S.2; GLUCOSE,POINT OF CARE 123 MG/DL (70-110)
[2023-12-14 18:10] LABS: GLUCOMETER DEV NAME(LOC) 6S.2; GLUCOSE,POINT OF CARE 100 MG/DL (70-110)
[2023-12-14 20:30] VITALS: BP 132/68; PULSE 58; RESP 20; TEMP 97.4
[2023-12-14] MEDS: LORazepam 1 MG TABLET NG PRN (20:46)
[2023-12-15 00:16] LABS: GLUCOMETER DEV NAME(LOC) 6N.2B; GLUCOSE,POINT OF CARE 117 MG/DL (70-110)
[2023-12-15 06:35] LABS: GLUCOMETER DEV NAME(LOC) 6S.2; GLUCOSE,POINT OF CARE 129 MG/DL (70-110)
[2023-12-15 08:28] VITALS: BP 129/45; PULSE 64; RESP 18; TEMP 97.5
[2023-12-15] MEDS: HALOPERIDOL 5 MG TABLET PO SCH (13:39)
[2023-12-15] MEDS: GuaiFENesin/D-METHORPHAN [SUGAR-FREE] 200-20MG/10 ML SYRUP UDCUP PO PRN (16:15)
[2023-12-15 20:55] VITALS: BP 130/81; PULSE 52; RESP 18; TEMP 97.1
[2023-12-15 22:00] VITALS: BP 133/57; PULSE 62; TEMP 98.3; O2SAT 98
[2023-12-15 22:10] VITALS: PULSE 68; RESP 30; O2SAT 100
[2023-12-15 22:30] LABS: HEMOGLOBIN 8.3 g/dL (13.5-17.5); LYMPHOCYTES # (AUTO) 2.1 K/uL (1.0-4.8); MEAN CORPUSCULAR HGB CONC 31.9 G/dL (31.0-37.0); NEUTROPHILS # (AUTO) 4.8 K/uL (1.8-7.7); PLATELET COUNT (AUTO) 150 K/uL (150-450); RED BLOOD CELL COUNT(AUTO) 2.79 MIL/uL (4.50-5.90); WHITE BLOOD COUNT (AUTO) 7.6 K/uL (4.5-11.0)
[2023-12-15 22:32] LABS: BASOPHILS % (AUTO) 0.8 % (0.0-2.0); EOSINOPHILS % (AUTO) 3.3 % (1.0-6.0); LYMPHOCYTES % (AUTO) 27.3 % (22.0-44.0); MEAN CORPUSCULAR HEMOGLOBIN 29.8 pg (26.0-34.0); MEAN CORPUSCULAR VOLUME 93 fL (80-100); MONOCYTES # (AUTO) 0.4 K/uL (0.1-1.0); MONOCYTES % (AUTO) 5.5 % (2.0-9.0); NEUTROPHILS % (AUTO) 63.1 % (40.0-70.0); RED CELL DISTRIBUTION WIDTH 17.1 % (11.5-14.5)
[2023-12-15] MEDS ORDERED: PROPOFOL 1000 MG/ISO-OSM 100 ML IV STA (22:34)
[2023-12-15 22:39] LABS: CALCIUM, TOTAL 7.7 mg/dL (8.8-10.5); CREATININE 4.18 mg/dL (0.60-1.30); POTASSIUM 3.3 mmol/L (3.5-5.1)
[2023-12-15 22:47] LABS: TROPONIN I-HIGH SENSITIVITY 28 ng/L (<76)
[2023-12-15 22:53] LABS: ALBUMIN 1.7 g/dL (3.4-5.0); BILIRUBIN,TOTAL 0.4 mg/dL (0.1-1.0); TOTAL PROTEIN, SERUM 4.9 g/dL (6.4-8.2)
[2023-12-15] MEDS: PROPOFOL 1000 MG/ISO-OSM 100 ML IV PRN (22:56)
[2023-12-15] MEDS: NOREPINEPHRINE 8 MG/0.9 % NACL 250 ML IV PRN (23:32)
[2023-12-15 23:43] LABS: ABG A-A DIFF O2 361.2 mmHg (10-20.0); ABG CARBOXYHEMOGLOBIN 0.6 % (0.0-1.5); ABG HCO3 25.2 mmol/L (22.0-26.0); ABG METHEMOGLOBIN 0.1 % (0.0-1.5); ABG OXYGEN CONTENT 12.8 mL/dL (15.0-23.0); ABG OXYGEN SATURATION 99.9 % (95.0-98.0); ABG OXYHEMOGLOBIN 99.2 % (94.0-100.0); ABG PCO2 51 mmHg (35-45); ABG TOTAL HEMOGLOBIN 8.6 G/dL (12.0-18.0); O2 DEVICE,BLOOD GAS VENT (ROOM AIR); PEEP,BG 5 cm H2O; PO2, ARTERIAL BG 302.4 mmHg (75.0-83.0); SITE, BLOOD GAS RT BRACHIAL; SOURCE, BLOOD GAS ARTERIAL; TEMPERATURE, FAHRENHEIT, BG 97.7 FAHREN (96.0-98.6); VT, ABG 400 ml
[2023-12-16] VITALS (23 sets, daily range): BP systolic 112–169; BP diastolic 53–90; PULSE 47–77; RESP 20–29; TEMP 96.8; O2SAT 98–100
[2023-12-16 01:06] LABS: GLUCOMETER DEV NAME(LOC) ICU.S6; GLUCOSE,POINT OF CARE 142 MG/DL (70-110)
[2023-12-16 01:16] LABS: GLUCOMETER DEV NAME(LOC) 6N.2B; GLUCOSE,POINT OF CARE 151 MG/DL (70-110)
[2023-12-16 01:16] LABS: GLUCOMETER DEV NAME(LOC) 4E.2; GLUCOSE,POINT OF CARE 135 MG/DL (70-110)
[2023-12-16 01:16] LABS: GLUCOMETER DEV NAME(LOC) 6N.2B; GLUCOSE,POINT OF CARE 122 MG/DL (70-110)
[2023-12-16 01:16] LABS: GLUCOMETER DEV NAME(LOC) 6S.2; GLUCOSE,POINT OF CARE 177 MG/DL (70-110)
[2023-12-16] MEDS: DOPamine 400MG/D5W[STANDARD] 250 ML IV PRN (03:05)
[2023-12-16 03:21] LABS: MAGNESIUM 2.3 mg/dL (1.80-2.40); PHOSPHORUS 3.5 mg/dL (2.5-4.9)
[2023-12-16] MEDS ORDERED: SODIUM CHLORIDE 0.9% 500 ML IV ONE (03:27)
[2023-12-16] MEDS ORDERED: EPINEPHrine 2 MG in DEXTROSE 5%-WATER 248 ML IV PRN (03:30)
[2023-12-16] MEDS: SODIUM CHLORIDE 0.9% 500 ML IV ONE (03:55)
[2023-12-16 06:24] LABS: BASOPHILS % (AUTO) 0.6 % (0.0-2.0); EOSINOPHILS % (AUTO) 0.7 % (1.0-6.0); HEMATOCRIT 31.1 % (41-53); LYMPHOCYTES # (AUTO) 0.4 K/uL (1.0-4.8); LYMPHOCYTES % (AUTO) 5.9 % (22.0-44.0); MEAN CORPUSCULAR HEMOGLOBIN 29.5 pg (26.0-34.0); MEAN CORPUSCULAR HGB CONC 32.2 G/dL (31.0-37.0); MEAN CORPUSCULAR VOLUME 91 fL (80-100); MONOCYTES # (AUTO) 0.1 K/uL (0.1-1.0); MONOCYTES % (AUTO) 1.7 % (2.0-9.0); NEUTROPHILS # (AUTO) 5.5 K/uL (1.8-7.7); PLATELET COUNT (AUTO) 186 K/uL (150-450); RED BLOOD CELL COUNT(AUTO) 3.41 MIL/uL (4.50-5.90); RED CELL DISTRIBUTION WIDTH 17.4 % (11.5-14.5)
[2023-12-16 06:42] LABS: CALCIUM, TOTAL 8.1 mg/dL (8.8-10.5); CREATININE 4.21 mg/dL (0.60-1.30); PHOSPHORUS 2.4 mg/dL (2.5-4.9); POTASSIUM 3.4 mmol/L (3.5-5.1); TROPONIN I-HIGH SENSITIVITY 53 ng/L (<76)
[2023-12-16 06:43] LABS: ALBUMIN 1.9 g/dL (3.4-5.0); BILIRUBIN,TOTAL 0.7 mg/dL (0.1-1.0); MAGNESIUM 2.4 mg/dL (1.80-2.40); TOTAL PROTEIN, SERUM 5.7 g/dL (6.4-8.2)
[2023-12-16 06:45] LABS: NEUTROPHILS % (AUTO) 91.1 % (40.0-70.0)
[2023-12-16 07:09] LABS: INR 1.2 (0.9-1.1); PROTHROMBIN TIME 12.4 SEC (9.4-11.6)
[2023-12-16 08:26] LABS: GLUCOMETER DEV NAME(LOC) ICU.S6; GLUCOSE,POINT OF CARE 135 MG/DL (70-110)
[2023-12-16 11:07] LABS: SOURCE, BLOOD GAS ARTERIAL; TEMPERATURE, FAHRENHEIT, BG 91.3 FAHREN (96.0-98.6)
[2023-12-16 13:59] LABS: ABG BASE EXCESS 4.5 mmol/L (-2.0-3.0); ABG CARBOXYHEMOGLOBIN 0.3 % (0.0-1.5); ABG METHEMOGLOBIN 0.3 % (0.0-1.5); ABG OXYGEN CONTENT 13.8 mL/dL (15.0-23.0); ABG OXYGEN SATURATION 94.8 % (95.0-98.0); ABG OXYHEMOGLOBIN 94.2 % (94.0-100.0); ABG PCO2 37 mmHg (35-45); ABG PH 7.493 (7.35-7.450); ABG TOTAL HEMOGLOBIN 10.4 G/dL (12.0-18.0); PO2, ARTERIAL BG 51.8 mmHg (75.0-83.0)
[2023-12-16 14:00] LABS: ALLEN TEST, BLOOD GAS Positive; O2 DEVICE,BLOOD GAS VENTILATOR (ROOM AIR); SITE, BLOOD GAS RT RADIAL; VT, ABG 400 ml
[2023-12-16 14:01] LABS: PEEP,BG 5 cm H2O; SPONTANEOUS VT, BG 412 ml
[2023-12-16 18:43] LABS: ALBUMIN 1.7 g/dL (3.4-5.0); BILIRUBIN,TOTAL 0.7 mg/dL (0.1-1.0); CALCIUM, TOTAL 7.9 mg/dL (8.8-10.5); CREATININE 2.83 mg/dL (0.60-1.30); PHOSPHORUS 1.7 mg/dL (2.5-4.9); POTASSIUM 3.6 mmol/L (3.5-5.1); TOTAL PROTEIN, SERUM 5.3 g/dL (6.4-8.2)
[2023-12-16 19:46] LABS: GLUCOMETER DEV NAME(LOC) ICU.S6; GLUCOSE,POINT OF CARE 97 MG/DL (70-110)
[2023-12-16 19:46] LABS: GLUCOMETER DEV NAME(LOC) ICU.S6; GLUCOSE,POINT OF CARE 116 MG/DL (70-110)
[2023-12-16] MEDS: PIPERACILLIN SODIUM/TAZOBACTAM 2.25 GM in DEXTROSE 5%-WATER 50 ML IV SCH (20:53)
[2023-12-16] MEDS ORDERED: SODIUM CHLORIDE 0.9% 250 ML IV ONE (21:02)
[2023-12-16] MEDS: SODIUM PHOS,M-BASIC-D-BASIC 10 MEQ in DEXTROSE 5%-WATER 50 ML IV ONE (21:52)
[2023-12-17] VITALS (15 sets, daily range): BP systolic 107–148; BP diastolic 39–110; PULSE 52–69; RESP 20–32; TEMP 92–95.7; O2SAT 94–100
[2023-12-17 01:16] LABS: GLUCOMETER DEV NAME(LOC) ICU.S6; GLUCOSE,POINT OF CARE 104 MG/DL (70-110)
[2023-12-17 05:22] LABS: BASOPHILS % (AUTO) 0.4 % (0.0-2.0); EOSINOPHILS % (AUTO) 0.6 % (1.0-6.0); HEMATOCRIT 26.1 % (41-53); HEMOGLOBIN 8.4 g/dL (13.5-17.5); LYMPHOCYTES # (AUTO) 0.7 K/uL (1.0-4.8); LYMPHOCYTES % (AUTO) 3.9 % (22.0-44.0); MEAN CORPUSCULAR HGB CONC 32.2 G/dL (31.0-37.0); MEAN CORPUSCULAR VOLUME 90 fL (80-100); MONOCYTES # (AUTO) 0.5 K/uL (0.1-1.0); MONOCYTES % (AUTO) 2.9 % (2.0-9.0); NEUTROPHILS # (AUTO) 16.9 K/uL (1.8-7.7); PLATELET COUNT (AUTO) 192 K/uL (150-450); RED CELL DISTRIBUTION WIDTH 17.2 % (11.5-14.5); WHITE BLOOD COUNT (AUTO) 18.3 K/uL (4.5-11.0)
[2023-12-17 05:23] LABS: NEUTROPHILS % (AUTO) 92.2 % (40.0-70.0)
[2023-12-17 05:34] LABS: CALCIUM, TOTAL 7.5 mg/dL (8.8-10.5); CREATININE 3.03 mg/dL (0.60-1.30); POTASSIUM 3.5 mmol/L (3.5-5.1)
[2023-12-17 06:55] LABS: GLUCOMETER DEV NAME(LOC) ICUN.5; GLUCOSE,POINT OF CARE 92 MG/DL (70-110)
[2023-12-17] MEDS: -POST HEMODIALYSIS NOTE- MISC SCH (08:18)
[2023-12-17 11:40] LABS: GLUCOMETER DEV NAME(LOC) ICUN.5; GLUCOSE,POINT OF CARE 98 MG/DL (70-110)
[2023-12-17] MEDS ORDERED: HEPARIN SODIUM,PORCINE 1,000 UNITS/ML VIAL IVP ONE (17:48)
[2023-12-17 18:41] LABS: GLUCOMETER DEV NAME(LOC) ICUN.5; GLUCOSE,POINT OF CARE 102 MG/DL (70-110)
[2023-12-17] MEDS: HEPARIN SODIUM,PORCINE 5,000 UNITS/ML VIAL SQ SCH (21:15)
[2023-12-18] VITALS (24 sets, daily range): BP systolic 103–151; BP diastolic 35–53; PULSE 61–70; RESP 14–28; TEMP 95.8–99.5; O2SAT 96–100
[2023-12-18 04:31] LABS: GLUCOMETER DEV NAME(LOC) ICUN.5; GLUCOSE,POINT OF CARE 97 MG/DL (70-110)
[2023-12-18 08:31] LABS: CALCIUM, TOTAL 7.2 mg/dL (8.8-10.5); CREATININE 3.82 mg/dL (0.60-1.30); POTASSIUM 3.9 mmol/L (3.5-5.1)
[2023-12-18 08:35] LABS: BASOPHILS % (AUTO) 1.5 % (0.0-2.0); EOSINOPHILS % (AUTO) 1.3 % (1.0-6.0); HEMATOCRIT 21.7 % (41-53); LYMPHOCYTES # (AUTO) 1.4 K/uL (1.0-4.8); LYMPHOCYTES % (AUTO) 7.7 % (22.0-44.0); MEAN CORPUSCULAR HEMOGLOBIN 28.7 pg (26.0-34.0); MEAN CORPUSCULAR HGB CONC 31.9 G/dL (31.0-37.0); MEAN CORPUSCULAR VOLUME 90 fL (80-100); MONOCYTES # (AUTO) 0.6 K/uL (0.1-1.0); MONOCYTES % (AUTO) 3.4 % (2.0-9.0); NEUTROPHILS # (AUTO) 15.8 K/uL (1.8-7.7); PLATELET COUNT (AUTO) 232 K/uL (150-450); RED BLOOD CELL COUNT(AUTO) 2.41 MIL/uL (4.50-5.90); RED CELL DISTRIBUTION WIDTH 17.3 % (11.5-14.5); WHITE BLOOD COUNT (AUTO) 18.3 K/uL (4.5-11.0)
[2023-12-18] MEDS ORDERED: SODIUM CHLORIDE 0.9% 250 ML IV ONE ×2 (08:36→12:09)
[2023-12-18 08:39] LABS: HEMOGLOBIN 6.9 g/dL (13.5-17.5); NEUTROPHILS % (AUTO) 86.1 % (40.0-70.0)
[2023-12-18] MEDS ORDERED: SODIUM CHLORIDE 0.9% 1,000 ML ONE ×2 (09:22)
[2023-12-18 13:41] LABS: GLUCOMETER DEV NAME(LOC) ICUN.5; GLUCOSE,POINT OF CARE 99 MG/DL (70-110)
[2023-12-18 13:50] LABS: GLUCOMETER DEV NAME(LOC) ICU.S6; GLUCOSE,POINT OF CARE 100 MG/DL (70-110)
[2023-12-18] MEDS ORDERED: SODIUM CHLORIDE 0.9% 100 ML ONE (16:01)
[2023-12-18] MEDS ORDERED: IOHEXOL 350 MG/ML 100 ML VIAL ONE (16:01)
[2023-12-18] MEDS: DEXMEDETOMIDINE HCL 400 MCG in SODIUM CHLORIDE 0.9% 96 ML IV PRN (17:25)
[2023-12-18] MEDS: ETHYL ALCOHOL 62% ANTISEPTIC NASAL SANITIZER 0.6 ML AMPUL NASAL SCH (20:13)
[2023-12-18 23:26] LABS: GLUCOMETER DEV NAME(LOC) ICU.S6; GLUCOSE,POINT OF CARE 86 MG/DL (70-110)
[2023-12-19] VITALS (16 sets, daily range): BP systolic 114–149; BP diastolic 50–66; PULSE 43–61; RESP 20–43; TEMP 95.6–98.7; O2SAT 99–100
[2023-12-19 00:56] LABS: GLUCOMETER DEV NAME(LOC) ICU.S6; GLUCOSE,POINT OF CARE 90 MG/DL (70-110)
[2023-12-19 06:34] LABS: BASOPHILS % (AUTO) 0.8 % (0.0-2.0); EOSINOPHILS % (AUTO) 1.6 % (1.0-6.0); HEMATOCRIT 26.1 % (41-53); HEMOGLOBIN 8.6 g/dL (13.5-17.5); LYMPHOCYTES # (AUTO) 2.4 K/uL (1.0-4.8); LYMPHOCYTES % (AUTO) 15.1 % (22.0-44.0); MEAN CORPUSCULAR HEMOGLOBIN 29.5 pg (26.0-34.0); MEAN CORPUSCULAR HGB CONC 33.1 G/dL (31.0-37.0); MEAN CORPUSCULAR VOLUME 89 fL (80-100); MONOCYTES # (AUTO) 0.6 K/uL (0.1-1.0); MONOCYTES % (AUTO) 3.9 % (2.0-9.0); NEUTROPHILS # (AUTO) 12.4 K/uL (1.8-7.7); NEUTROPHILS % (AUTO) 78.6 % (40.0-70.0); PLATELET COUNT (AUTO) 274 K/uL (150-450); RED BLOOD CELL COUNT(AUTO) 2.92 MIL/uL (4.50-5.90); RED CELL DISTRIBUTION WIDTH 16.6 % (11.5-14.5); WHITE BLOOD COUNT (AUTO) 15.8 K/uL (4.5-11.0)
[2023-12-19 06:37] LABS: ALBUMIN 1.4 g/dL (3.4-5.0); BILIRUBIN,TOTAL 0.5 mg/dL (0.1-1.0); CALCIUM, TOTAL 7.2 mg/dL (8.8-10.5); CREATININE 2.77 mg/dL (0.60-1.30); POTASSIUM 3.4 mmol/L (3.5-5.1); TOTAL PROTEIN, SERUM 4.8 g/dL (6.4-8.2)
[2023-12-19] MEDS ORDERED: SODIUM CHLORIDE 0.9% 250 ML IV ONE (07:58)
[2023-12-19 11:41] LABS: GLUCOMETER DEV NAME(LOC) ICUN.5; GLUCOSE,POINT OF CARE 103 MG/DL (70-110)
[2023-12-19 13:15] LABS: GLUCOMETER DEV NAME(LOC) ICUN.5; GLUCOSE,POINT OF CARE 79 MG/DL (70-110)
[2023-12-19] MEDS ORDERED: HEPARIN SODIUM,PORCINE 1,000 UNITS/ML VIAL IVP ONE (16:26)
[2023-12-20] VITALS (19 sets, daily range): BP systolic 110–176; BP diastolic 47–76; PULSE 50–74; RESP 20–38; TEMP 95.6–97.6; O2SAT 98–100
[2023-12-20 00:11] LABS: GLUCOMETER DEV NAME(LOC) ICU.S6; GLUCOSE,POINT OF CARE 87 MG/DL (70-110)
[2023-12-20 02:56] LABS: GLUCOMETER DEV NAME(LOC) ICUN.5; GLUCOSE,POINT OF CARE 120 MG/DL (70-110)
[2023-12-20 05:30] LABS: BASOPHILS % (AUTO) 1.8 % (0.0-2.0); EOSINOPHILS % (AUTO) 3.7 % (1.0-6.0); HEMATOCRIT 27.1 % (41-53); HEMOGLOBIN 8.9 g/dL (13.5-17.5); LYMPHOCYTES # (AUTO) 1.9 K/uL (1.0-4.8); LYMPHOCYTES % (AUTO) 17.8 % (22.0-44.0); MEAN CORPUSCULAR HEMOGLOBIN 29.5 pg (26.0-34.0); MEAN CORPUSCULAR VOLUME 90 fL (80-100); MONOCYTES # (AUTO) 0.5 K/uL (0.1-1.0); MONOCYTES % (AUTO) 4.3 % (2.0-9.0); NEUTROPHILS # (AUTO) 7.7 K/uL (1.8-7.7); NEUTROPHILS % (AUTO) 72.4 % (40.0-70.0); PLATELET COUNT (AUTO) 296 K/uL (150-450); RED BLOOD CELL COUNT(AUTO) 3.03 MIL/uL (4.50-5.90); RED CELL DISTRIBUTION WIDTH 16.2 % (11.5-14.5); WHITE BLOOD COUNT (AUTO) 10.7 K/uL (4.5-11.0)
[2023-12-20 05:46] LABS: ALBUMIN 1.3 g/dL (3.4-5.0); BILIRUBIN,TOTAL 0.4 mg/dL (0.1-1.0); CREATININE 3.45 mg/dL (0.60-1.30); POTASSIUM 3.3 mmol/L (3.5-5.1); TOTAL PROTEIN, SERUM 4.6 g/dL (6.4-8.2)
[2023-12-20 07:01] LABS: GLUCOMETER DEV NAME(LOC) ICU.S6; GLUCOSE,POINT OF CARE 122 MG/DL (70-110)
[2023-12-20 10:04] LABS: ABG BASE EXCESS 6.6 mmol/L (-2.0-3.0); ABG CARBOXYHEMOGLOBIN 0.3 % (0.0-1.5); ABG HCO3 29.8 mmol/L (22.0-26.0); ABG METHEMOGLOBIN 0.1 % (0.0-1.5); ABG OXYGEN CONTENT 14.5 mL/dL (15.0-23.0); ABG OXYGEN SATURATION 95.6 % (95.0-98.0); ABG OXYHEMOGLOBIN 95.2 % (94.0-100.0); ABG PCO2 41 mmHg (35-45); ABG TOTAL HEMOGLOBIN 10.8 G/dL (12.0-18.0); PO2, ARTERIAL BG 65.7 mmHg (75.0-83.0); SOURCE, BLOOD GAS ARTERIAL; TEMPERATURE, FAHRENHEIT, BG 95.4 FAHREN (96.0-98.6)
[2023-12-20 10:05] LABS: ABG A-A DIFF O2 137.5 mmHg (10-20.0); O2 DEVICE,BLOOD GAS VENTILATOR (ROOM AIR); PEEP,BG 5 cm H2O; PRESSURE SUPPORT, BG 5 cm H2O; SITE, BLOOD GAS LFT BRACHIAL; SPONTANEOUS VT, BG 402 ml; VENT MODE, BG Press. Support Vent. (ROOM AIR)
[2023-12-20] MEDS ORDERED: HEPARIN SODIUM,PORCINE 1,000 UNITS/ML VIAL IVP ONE (12:00)
[2023-12-20] MEDS ORDERED: MORPHINE SULFATE 2 MG/ML SYRINGE IVP PRN (12:45)
[2023-12-20 13:16] LABS: GLUCOMETER DEV NAME(LOC) ICU.S6; GLUCOSE,POINT OF CARE 101 MG/DL (70-110)
[2023-12-20] MEDS: HEPARIN SODIUM,PORCINE 1,000 UNITS/ML VIAL IVCATH ONE ×2 (14:44)
[2023-12-20 18:27] LABS: GLUCOMETER DEV NAME(LOC) ICU.S6; GLUCOSE,POINT OF CARE 103 MG/DL (70-110)
[2023-12-21] VITALS (7 sets, daily range): BP systolic 95–167; BP diastolic 48–77; PULSE 76–96; RESP 30–46; TEMP 97.2–98; O2SAT 99
[2023-12-21 01:11] LABS: GLUCOMETER DEV NAME(LOC) ICU.S6; GLUCOSE,POINT OF CARE 134 MG/DL (70-110)
[2023-12-21] MEDS: ATROPINE SULFATE 1% 5 ML OPHTHALMIC SOLUTION SL ONE (05:55)
[2023-12-21 05:56] LABS: BASOPHILS % (AUTO) 1.5 % (0.0-2.0); EOSINOPHILS % (AUTO) 4.4 % (1.0-6.0); HEMATOCRIT 31.8 % (41-53); HEMOGLOBIN 10.3 g/dL (13.5-17.5); LYMPHOCYTES # (AUTO) 1.9 K/uL (1.0-4.8); LYMPHOCYTES % (AUTO) 15.1 % (22.0-44.0); MEAN CORPUSCULAR HEMOGLOBIN 29.1 pg (26.0-34.0); MEAN CORPUSCULAR HGB CONC 32.4 G/dL (31.0-37.0); MEAN CORPUSCULAR VOLUME 90 fL (80-100); MONOCYTES # (AUTO) 0.8 K/uL (0.1-1.0); MONOCYTES % (AUTO) 6.5 % (2.0-9.0); NEUTROPHILS # (AUTO) 9.2 K/uL (1.8-7.7); NEUTROPHILS % (AUTO) 72.5 % (40.0-70.0); PLATELET COUNT (AUTO) 348 K/uL (150-450); RED BLOOD CELL COUNT(AUTO) 3.54 MIL/uL (4.50-5.90); RED CELL DISTRIBUTION WIDTH 16.3 % (11.5-14.5); WHITE BLOOD COUNT (AUTO) 12.7 K/uL (4.5-11.0)
[2023-12-21 06:04] LABS: ALBUMIN 1.5 g/dL (3.4-5.0); BILIRUBIN,TOTAL 0.5 mg/dL (0.1-1.0); CALCIUM, TOTAL 7.5 mg/dL (8.8-10.5); CREATININE 2.43 mg/dL (0.60-1.30); POTASSIUM 3.3 mmol/L (3.5-5.1); TOTAL PROTEIN, SERUM 5.1 g/dL (6.4-8.2)
[2023-12-21 07:16] LABS: GLUCOMETER DEV NAME(LOC) ICU.S6; GLUCOSE,POINT OF CARE 132 MG/DL (70-110)
[2023-12-21] MEDS ORDERED: SODIUM CHLORIDE 0.9% 250 ML IV ONE (07:40)
[2023-12-21 16:55] LABS: GLUCOMETER DEV NAME(LOC) ICUN.5; GLUCOSE,POINT OF CARE 85 MG/DL (70-110)
[2023-12-21 20:35] LABS: GLUCOMETER DEV NAME(LOC) ICUN.5; GLUCOSE,POINT OF CARE 101 MG/DL (70-110)
[2023-12-22] VITALS (27 sets, daily range): BP systolic 92–167; BP diastolic 40–78; PULSE 86–101; RESP 21–50; TEMP 97.8–98.7; O2SAT 91–99
[2023-12-22 01:50] LABS: GLUCOMETER DEV NAME(LOC) ICUN.5; GLUCOSE,POINT OF CARE 114 MG/DL (70-110)
[2023-12-22 05:36] LABS: BASOPHILS % (AUTO) 1.7 % (0.0-2.0); EOSINOPHILS % (AUTO) 3.1 % (1.0-6.0); HEMATOCRIT 29.5 % (41-53); HEMOGLOBIN 9.7 g/dL (13.5-17.5); LYMPHOCYTES # (AUTO) 1.5 K/uL (1.0-4.8); MEAN CORPUSCULAR HEMOGLOBIN 29.8 pg (26.0-34.0); MEAN CORPUSCULAR VOLUME 90 fL (80-100); MONOCYTES # (AUTO) 0.9 K/uL (0.1-1.0); MONOCYTES % (AUTO) 7.8 % (2.0-9.0); NEUTROPHILS # (AUTO) 8.7 K/uL (1.8-7.7); NEUTROPHILS % (AUTO) 74.4 % (40.0-70.0); PLATELET COUNT (AUTO) 385 K/uL (150-450); RED BLOOD CELL COUNT(AUTO) 3.26 MIL/uL (4.50-5.90); RED CELL DISTRIBUTION WIDTH 16.4 % (11.5-14.5); WHITE BLOOD COUNT (AUTO) 11.8 K/uL (4.5-11.0)
[2023-12-22 05:44] LABS: ALBUMIN 1.4 g/dL (3.4-5.0); BILIRUBIN,TOTAL 0.5 mg/dL (0.1-1.0); CALCIUM, TOTAL 7.8 mg/dL (8.8-10.5); CREATININE 3.48 mg/dL (0.60-1.30); POTASSIUM 3.5 mmol/L (3.5-5.1); TOTAL PROTEIN, SERUM 5.2 g/dL (6.4-8.2)
[2023-12-22 06:51] LABS: GLUCOMETER DEV NAME(LOC) ICUN.5; GLUCOSE,POINT OF CARE 145 MG/DL (70-110)
[2023-12-22] MEDS ORDERED: HEPARIN SODIUM,PORCINE 1,000 UNITS/ML VIAL IVP ONE (12:00)
[2023-12-22] MEDS ORDERED: LIDOCAINE 2% 11 ML JELLY TP ONE (12:00)
[2023-12-22] MEDS: ALBUTEROL SULFATE 2.5 MG/0.5 ML NEB SOLUTION NEB SCH ×2 (13:07→20:21)
[2023-12-22] MEDS: IPRATROPIUM BROMIDE 0.5 MG/2.5 ML NEB SOLUTION NEB SCH ×2 (13:07→20:22)
[2023-12-22] MEDS: ACETYLCYSTEINE 10% 100 MG/ML 4 ML NEB SOLUTION NEB ONE ×2 (14:50→16:13)
[2023-12-22] MEDS: HEPARIN SODIUM,PORCINE 1,000 UNITS/ML VIAL IVCATH ONE ×2 (19:56→19:57)
[2023-12-22] MEDS: ACETYLCYSTEINE 10% 100 MG/ML 4 ML NEB SOLUTION NEB SCH (20:22)
[2023-12-22 20:26] LABS: GLUCOMETER DEV NAME(LOC) ICU.S6; GLUCOSE,POINT OF CARE 127 MG/DL (70-110)
[2023-12-22 20:26] LABS: GLUCOMETER DEV NAME(LOC) ICU.S6; GLUCOSE,POINT OF CARE 119 MG/DL (70-110)
[2023-12-23] VITALS (21 sets, daily range): BP systolic 91–156; BP diastolic 49–96; PULSE 76–99; RESP 16–39; TEMP 96.6–98.7; O2SAT 93–100
[2023-12-23 00:26] LABS: GLUCOMETER DEV NAME(LOC) ICU.S6; GLUCOSE,POINT OF CARE 131 MG/DL (70-110)
[2023-12-23 05:40] LABS: BASOPHILS % (AUTO) 1.9 % (0.0-2.0); HEMATOCRIT 27.8 % (41-53); LYMPHOCYTES # (AUTO) 1.3 K/uL (1.0-4.8); LYMPHOCYTES % (AUTO) 12.6 % (22.0-44.0); MEAN CORPUSCULAR HEMOGLOBIN 29.3 pg (26.0-34.0); MEAN CORPUSCULAR HGB CONC 32.4 G/dL (31.0-37.0); MEAN CORPUSCULAR VOLUME 91 fL (80-100); MONOCYTES # (AUTO) 0.9 K/uL (0.1-1.0); MONOCYTES % (AUTO) 9.2 % (2.0-9.0); NEUTROPHILS # (AUTO) 7.7 K/uL (1.8-7.7); NEUTROPHILS % (AUTO) 75.3 % (40.0-70.0); PLATELET COUNT (AUTO) 425 K/uL (150-450); RED BLOOD CELL COUNT(AUTO) 3.07 MIL/uL (4.50-5.90); RED CELL DISTRIBUTION WIDTH 16.4 % (11.5-14.5); WHITE BLOOD COUNT (AUTO) 10.3 K/uL (4.5-11.0)
[2023-12-23 05:52] LABS: ALBUMIN 1.5 g/dL (3.4-5.0); BILIRUBIN,TOTAL 0.5 mg/dL (0.1-1.0); CALCIUM, TOTAL 7.9 mg/dL (8.8-10.5); CREATININE 2.79 mg/dL (0.60-1.30); POTASSIUM 3.4 mmol/L (3.5-5.1); TOTAL PROTEIN, SERUM 5.4 g/dL (6.4-8.2)
[2023-12-23 06:35] LABS: GLUCOMETER DEV NAME(LOC) ICU.S6; GLUCOSE,POINT OF CARE 178 MG/DL (70-110)
[2023-12-23] MEDS ORDERED: HEPARIN SODIUM,PORCINE 1,000 UNITS/ML VIAL IVP ONE (12:00)
[2023-12-23] MEDS ORDERED: SODIUM CHLORIDE 0.9% 250 ML IV ONE (12:26)
[2023-12-23 21:00] LABS: GLUCOMETER DEV NAME(LOC) ICU.S6; GLUCOSE,POINT OF CARE 113 MG/DL (70-110)
[2023-12-23 21:00] LABS: GLUCOMETER DEV NAME(LOC) ICU.S6; GLUCOSE,POINT OF CARE 156 MG/DL (70-110)
[2023-12-24] VITALS (17 sets, daily range): BP systolic 136–158; BP diastolic 54–92; PULSE 76–97; RESP 17–35; TEMP 97.8–99.3; O2SAT 91–100
[2023-12-24 02:56] LABS: GLUCOMETER DEV NAME(LOC) ICU.S6; GLUCOSE,POINT OF CARE 166 MG/DL (70-110)
[2023-12-24 05:14] LABS: BASOPHILS % (AUTO) 2.1 % (0.0-2.0); EOSINOPHILS % (AUTO) 3.1 % (1.0-6.0); HEMATOCRIT 25.4 % (41-53); HEMOGLOBIN 8.3 g/dL (13.5-17.5); LYMPHOCYTES # (AUTO) 1.3 K/uL (1.0-4.8); LYMPHOCYTES % (AUTO) 13.9 % (22.0-44.0); MEAN CORPUSCULAR HEMOGLOBIN 29.8 pg (26.0-34.0); MEAN CORPUSCULAR HGB CONC 32.8 G/dL (31.0-37.0); MEAN CORPUSCULAR VOLUME 91 fL (80-100); MONOCYTES # (AUTO) 1.1 K/uL (0.1-1.0); MONOCYTES % (AUTO) 12.1 % (2.0-9.0); NEUTROPHILS # (AUTO) 6.3 K/uL (1.8-7.7); NEUTROPHILS % (AUTO) 68.8 % (40.0-70.0); PLATELET COUNT (AUTO) 444 K/uL (150-450); RED BLOOD CELL COUNT(AUTO) 2.79 MIL/uL (4.50-5.90); RED CELL DISTRIBUTION WIDTH 17.1 % (11.5-14.5); WHITE BLOOD COUNT (AUTO) 9.2 K/uL (4.5-11.0)
[2023-12-24 05:20] LABS: CALCIUM, TOTAL 7.9 mg/dL (8.8-10.5); CREATININE 2.52 mg/dL (0.60-1.30); POTASSIUM 3.4 mmol/L (3.5-5.1)
[2023-12-24 06:21] LABS: GLUCOMETER DEV NAME(LOC) ICU.S6; GLUCOSE,POINT OF CARE 76 MG/DL (70-110)
[2023-12-24 15:51] LABS: GLUCOMETER DEV NAME(LOC) ICU.S6; GLUCOSE,POINT OF CARE 152 MG/DL (70-110)
[2023-12-24 22:01] LABS: GLUCOMETER DEV NAME(LOC) 5S.2C; GLUCOSE,POINT OF CARE 113 MG/DL (70-110)
[2023-12-24] MEDS ORDERED: SODIUM CHLORIDE 0.9% 500 ML IV ONE (23:16)
[2023-12-25] VITALS (21 sets, daily range): BP systolic 140–172; BP diastolic 48–81; PULSE 68–90; RESP 18–22; TEMP 97–99.9; O2SAT 98–100
[2023-12-25 05:45] LABS: GLUCOMETER DEV NAME(LOC) 5N.2C; GLUCOSE,POINT OF CARE 98 MG/DL (70-110)
[2023-12-25 06:08] LABS: CALCIUM, TOTAL 7.9 mg/dL (8.8-10.5); CREATININE 3.5 mg/dL (0.60-1.30); POTASSIUM 3.5 mmol/L (3.5-5.1)
[2023-12-25 06:24] LABS: BASOPHILS % (AUTO) 2.8 % (0.0-2.0); EOSINOPHILS % (AUTO) 5.4 % (1.0-6.0); HEMATOCRIT 25.8 % (41-53); HEMOGLOBIN 8.5 g/dL (13.5-17.5); LYMPHOCYTES # (AUTO) 1.5 K/uL (1.0-4.8); LYMPHOCYTES % (AUTO) 18.6 % (22.0-44.0); MEAN CORPUSCULAR HEMOGLOBIN 29.7 pg (26.0-34.0); MEAN CORPUSCULAR HGB CONC 32.8 G/dL (31.0-37.0); MEAN CORPUSCULAR VOLUME 91 fL (80-100); MONOCYTES # (AUTO) 0.6 K/uL (0.1-1.0); NEUTROPHILS # (AUTO) 5.2 K/uL (1.8-7.7); NEUTROPHILS % (AUTO) 65.2 % (40.0-70.0); PLATELET COUNT (AUTO) 482 K/uL (150-450); RED BLOOD CELL COUNT(AUTO) 2.86 MIL/uL (4.50-5.90); RED CELL DISTRIBUTION WIDTH 16.8 % (11.5-14.5); WHITE BLOOD COUNT (AUTO) 7.9 K/uL (4.5-11.0)
[2023-12-25] MEDS: ACETAMINOPHEN 325 MG TABLET PO PRN (11:13)
[2023-12-25] MEDS: AmLODIPine BESYLATE 5 MG TABLET PO SCH (12:30)
[2023-12-25] MEDS: PIPERACILLIN SODIUM/TAZOBACTAM 0.75 GM in DEXTROSE 5%-WATER 50 ML IV PRN (15:51)
[2023-12-25 19:29] LABS: GLUCOMETER DEV NAME(LOC) 5S.1B; GLUCOSE,POINT OF CARE 140 MG/DL (70-110)
[2023-12-25 19:29] LABS: GLUCOMETER DEV NAME(LOC) 5S.1B; GLUCOSE,POINT OF CARE 149 MG/DL (70-110)
[2023-12-25 19:29] LABS: GLUCOMETER DEV NAME(LOC) 5S.2C; GLUCOSE,POINT OF CARE 132 MG/DL (70-110)
[2023-12-25 22:55] LABS: GLUCOMETER DEV NAME(LOC) 5S.1B; GLUCOSE,POINT OF CARE 160 MG/DL (70-110)
[2023-12-26] VITALS (13 sets, daily range): BP systolic 131–175; BP diastolic 49–92; PULSE 72–85; RESP 18–22; TEMP 98–99; O2SAT 96–100
[2023-12-26 06:31] LABS: GLUCOMETER DEV NAME(LOC) 5S.2C; GLUCOSE,POINT OF CARE 131 MG/DL (70-110)
[2023-12-26 07:42] LABS: BASOPHILS % (AUTO) 3.5 % (0.0-2.0); EOSINOPHILS % (AUTO) 6.4 % (1.0-6.0); HEMATOCRIT 27.1 % (41-53); HEMOGLOBIN 8.9 g/dL (13.5-17.5); LYMPHOCYTES # (AUTO) 1.4 K/uL (1.0-4.8); LYMPHOCYTES % (AUTO) 18.1 % (22.0-44.0); MEAN CORPUSCULAR HEMOGLOBIN 29.6 pg (26.0-34.0); MEAN CORPUSCULAR VOLUME 90 fL (80-100); MONOCYTES # (AUTO) 0.7 K/uL (0.1-1.0); MONOCYTES % (AUTO) 8.5 % (2.0-9.0); NEUTROPHILS # (AUTO) 4.9 K/uL (1.8-7.7); NEUTROPHILS % (AUTO) 63.5 % (40.0-70.0); PLATELET COUNT (AUTO) 515 K/uL (150-450); RED BLOOD CELL COUNT(AUTO) 3.01 MIL/uL (4.50-5.90); RED CELL DISTRIBUTION WIDTH 16.8 % (11.5-14.5); WHITE BLOOD COUNT (AUTO) 7.8 K/uL (4.5-11.0)
[2023-12-26 08:41] LABS: CALCIUM, TOTAL 8.1 mg/dL (8.8-10.5); CREATININE 2.66 mg/dL (0.60-1.30); POTASSIUM 3.5 mmol/L (3.5-5.1)
[2023-12-26] MEDS ORDERED: HEPARIN SODIUM,PORCINE 1,000 UNITS/ML VIAL IVP ONE (16:46)
[2023-12-26 19:06] LABS: GLUCOMETER DEV NAME(LOC) 5S.1B; GLUCOSE,POINT OF CARE 148 MG/DL (70-110)
[2023-12-26 19:30] LABS: GLUCOMETER DEV NAME(LOC) 5S.2C; GLUCOSE,POINT OF CARE 182 MG/DL (70-110)
[2023-12-27] VITALS (24 sets, daily range): BP systolic 125–179; BP diastolic 50–97; PULSE 70–96; RESP 18–20; TEMP 97.6–98.9; O2SAT 97–100
[2023-12-27 06:00] LABS: BASOPHILS % (AUTO) 2.1 % (0.0-2.0); EOSINOPHILS % (AUTO) 7.3 % (1.0-6.0); HEMATOCRIT 27.5 % (41-53); HEMOGLOBIN 8.9 g/dL (13.5-17.5); LYMPHOCYTES # (AUTO) 1.5 K/uL (1.0-4.8); LYMPHOCYTES % (AUTO) 16.8 % (22.0-44.0); MEAN CORPUSCULAR HEMOGLOBIN 29.5 pg (26.0-34.0); MEAN CORPUSCULAR HGB CONC 32.5 G/dL (31.0-37.0); MEAN CORPUSCULAR VOLUME 91 fL (80-100); MONOCYTES # (AUTO) 0.9 K/uL (0.1-1.0); MONOCYTES % (AUTO) 10.6 % (2.0-9.0); NEUTROPHILS # (AUTO) 5.5 K/uL (1.8-7.7); NEUTROPHILS % (AUTO) 63.2 % (40.0-70.0); PLATELET COUNT (AUTO) 520 K/uL (150-450); RED BLOOD CELL COUNT(AUTO) 3.03 MIL/uL (4.50-5.90); RED CELL DISTRIBUTION WIDTH 16.7 % (11.5-14.5); WHITE BLOOD COUNT (AUTO) 8.7 K/uL (4.5-11.0)
[2023-12-27 06:24] LABS: CALCIUM, TOTAL 7.7 mg/dL (8.8-10.5); CREATININE 3.58 mg/dL (0.60-1.30); MAGNESIUM 2.2 mg/dL (1.80-2.40); POTASSIUM 3.3 mmol/L (3.5-5.1)
[2023-12-27 07:46] LABS: PHOSPHORUS 1.1 mg/dL (2.5-4.9)
[2023-12-27 08:31] LABS: GLUCOMETER DEV NAME(LOC) 5N.1D; GLUCOSE,POINT OF CARE 168 MG/DL (70-110)
[2023-12-27 08:31] LABS: GLUCOMETER DEV NAME(LOC) 5N.1D; GLUCOSE,POINT OF CARE 96 MG/DL (70-110)
[2023-12-27] MEDS: POTASSIUM PHOS,M-BASIC-D-BASIC 20 MMOL in DEXTROSE 5%-WATER 150 ML IV ONE (10:16)
[2023-12-27 12:20] LABS: GLUCOMETER DEV NAME(LOC) 5S.1B; GLUCOSE,POINT OF CARE 155 MG/DL (70-110)
[2023-12-27] MEDS ORDERED: SODIUM CHLORIDE 0.9% 2,000 ML ONE (12:24)
[2023-12-27] MEDS: HEPARIN SODIUM,PORCINE 1,000 UNITS/ML VIAL IVP PRN ×2 (19:27)
[2023-12-28] VITALS (12 sets, daily range): BP systolic 136–153; BP diastolic 50–80; PULSE 76–89; RESP 16–18; TEMP 98.3–99.1; O2SAT 95–100
[2023-12-28 00:16] LABS: GLUCOMETER DEV NAME(LOC) 5S.1B; GLUCOSE,POINT OF CARE 126 MG/DL (70-110)
[2023-12-28 02:11] LABS: GLUCOMETER DEV NAME(LOC) 4E.2; GLUCOSE,POINT OF CARE 135 MG/DL (70-110)
[2023-12-28] MEDS ORDERED: SODIUM CHLORIDE 0.9% 250 ML IV ONE (03:56)
[2023-12-28 07:35] LABS: GLUCOMETER DEV NAME(LOC) 6N.2B; GLUCOSE,POINT OF CARE 170 MG/DL (70-110)
[2023-12-28 08:07] LABS: BASOPHILS % (AUTO) 2.6 % (0.0-2.0); EOSINOPHILS % (AUTO) 9.2 % (1.0-6.0); HEMATOCRIT 27.8 % (41-53); LYMPHOCYTES # (AUTO) 1.3 K/uL (1.0-4.8); MEAN CORPUSCULAR HEMOGLOBIN 29.3 pg (26.0-34.0); MEAN CORPUSCULAR HGB CONC 32.3 G/dL (31.0-37.0); MEAN CORPUSCULAR VOLUME 91 fL (80-100); MONOCYTES # (AUTO) 0.8 K/uL (0.1-1.0); MONOCYTES % (AUTO) 9.9 % (2.0-9.0); NEUTROPHILS # (AUTO) 4.9 K/uL (1.8-7.7); NEUTROPHILS % (AUTO) 62.3 % (40.0-70.0); PLATELET COUNT (AUTO) 546 K/uL (150-450); RED BLOOD CELL COUNT(AUTO) 3.06 MIL/uL (4.50-5.90); RED CELL DISTRIBUTION WIDTH 17.3 % (11.5-14.5); WHITE BLOOD COUNT (AUTO) 7.9 K/uL (4.5-11.0)
[2023-12-28 08:22] LABS: CALCIUM, TOTAL 8.4 mg/dL (8.8-10.5); CREATININE 2.55 mg/dL (0.60-1.30); POTASSIUM 3.4 mmol/L (3.5-5.1)
[2023-12-28 12:00] LABS: GLUCOMETER DEV NAME(LOC) 6N.2B; GLUCOSE,POINT OF CARE 120 MG/DL (70-110)
[2023-12-28] MEDS: POTASSIUM CHLORIDE 10% 40 MEQ/30 ML LIQUID UDCUP GT SCH (16:08)
[2023-12-28 18:15] LABS: GLUCOMETER DEV NAME(LOC) 6N.2B; GLUCOSE,POINT OF CARE 192 MG/DL (70-110)
[2023-12-29] VITALS (13 sets, daily range): BP systolic 137–154; BP diastolic 54–61; PULSE 70–80; RESP 16–22; TEMP 98–98.4; O2SAT 91–100
[2023-12-29 05:56] LABS: GLUCOMETER DEV NAME(LOC) 6N.2B; GLUCOSE,POINT OF CARE 116 MG/DL (70-110)
[2023-12-29 07:03] LABS: BASOPHILS % (AUTO) 2.2 % (0.0-2.0); EOSINOPHILS % (AUTO) 9.9 % (1.0-6.0); HEMATOCRIT 29.2 % (41-53); HEMOGLOBIN 9.5 g/dL (13.5-17.5); LYMPHOCYTES # (AUTO) 1.5 K/uL (1.0-4.8); LYMPHOCYTES % (AUTO) 16.6 % (22.0-44.0); MEAN CORPUSCULAR HEMOGLOBIN 29.3 pg (26.0-34.0); MEAN CORPUSCULAR HGB CONC 32.6 G/dL (31.0-37.0); MEAN CORPUSCULAR VOLUME 90 fL (80-100); MONOCYTES # (AUTO) 0.8 K/uL (0.1-1.0); MONOCYTES % (AUTO) 8.7 % (2.0-9.0); NEUTROPHILS # (AUTO) 5.5 K/uL (1.8-7.7); NEUTROPHILS % (AUTO) 62.6 % (40.0-70.0); PLATELET COUNT (AUTO) 573 K/uL (150-450); RED BLOOD CELL COUNT(AUTO) 3.24 MIL/uL (4.50-5.90); RED CELL DISTRIBUTION WIDTH 17.1 % (11.5-14.5); WHITE BLOOD COUNT (AUTO) 8.8 K/uL (4.5-11.0)
[2023-12-29 07:20] LABS: CALCIUM, TOTAL 8.1 mg/dL (8.8-10.5); CREATININE 3.48 mg/dL (0.60-1.30); PHOSPHORUS 2.3 mg/dL (2.5-4.9); POTASSIUM 4.4 mmol/L (3.5-5.1)
[2023-12-29] MEDS ORDERED: SODIUM CHLORIDE 0.9% 250 ML IV ONE (15:43)
[2023-12-29 17:26] LABS: GLUCOMETER DEV NAME(LOC) 4E.2; GLUCOSE,POINT OF CARE 167 MG/DL (70-110)
[2023-12-30] VITALS (20 sets, daily range): BP systolic 141–180; BP diastolic 62–98; PULSE 72–84; RESP 16–20; TEMP 96.8–98.9; O2SAT 95–100
[2023-12-30 05:21] LABS: GLUCOMETER DEV NAME(LOC) 6S.2; GLUCOSE,POINT OF CARE 175 MG/DL (70-110)
[2023-12-30 06:00] LABS: GLUCOMETER DEV NAME(LOC) 4E.2; GLUCOSE,POINT OF CARE 87 MG/DL (70-110)
[2023-12-30 07:35] LABS: BASOPHILS % (AUTO) 3.1 % (0.0-2.0); EOSINOPHILS % (AUTO) 11.2 % (1.0-6.0); HEMATOCRIT 30.8 % (41-53); HEMOGLOBIN 9.9 g/dL (13.5-17.5); LYMPHOCYTES # (AUTO) 1.2 K/uL (1.0-4.8); LYMPHOCYTES % (AUTO) 12.6 % (22.0-44.0); MEAN CORPUSCULAR HEMOGLOBIN 28.9 pg (26.0-34.0); MEAN CORPUSCULAR HGB CONC 32.1 G/dL (31.0-37.0); MEAN CORPUSCULAR VOLUME 90 fL (80-100); MONOCYTES # (AUTO) 0.7 K/uL (0.1-1.0); MONOCYTES % (AUTO) 7.5 % (2.0-9.0); NEUTROPHILS # (AUTO) 6.2 K/uL (1.8-7.7); NEUTROPHILS % (AUTO) 65.6 % (40.0-70.0); PLATELET COUNT (AUTO) 603 K/uL (150-450); RED BLOOD CELL COUNT(AUTO) 3.43 MIL/uL (4.50-5.90); RED CELL DISTRIBUTION WIDTH 17.2 % (11.5-14.5); WHITE BLOOD COUNT (AUTO) 9.5 K/uL (4.5-11.0)
[2023-12-30 07:48] LABS: CALCIUM, TOTAL 8.2 mg/dL (8.8-10.5); CREATININE 4.37 mg/dL (0.60-1.30); POTASSIUM 4.8 mmol/L (3.5-5.1)
[2023-12-30] MEDS ORDERED: SODIUM CHLORIDE 0.9% 2,000 ML ONE (09:03)
[2023-12-30] MEDS ORDERED: HEPARIN SODIUM,PORCINE 1,000 UNITS/ML VIAL ONE (12:00)
[2023-12-30 23:10] LABS: GLUCOMETER DEV NAME(LOC) 6S.2; GLUCOSE,POINT OF CARE 159 MG/DL (70-110)
[2023-12-30 23:10] LABS: GLUCOMETER DEV NAME(LOC) 6S.2; GLUCOSE,POINT OF CARE 108 MG/DL (70-110)
[2023-12-31] VITALS (11 sets, daily range): BP systolic 147–152; BP diastolic 55–97; PULSE 80–87; RESP 18–20; TEMP 97.6–98.7; O2SAT 95–100
[2023-12-31 00:10] LABS: GLUCOMETER DEV NAME(LOC) 6S.2; GLUCOSE,POINT OF CARE 106 MG/DL (70-110)
[2023-12-31 08:46] LABS: GLUCOMETER DEV NAME(LOC) 6N.2B; GLUCOSE,POINT OF CARE 175 MG/DL (70-110)
[2023-12-31] MEDS: AMOX TR/POT CLAV 875 MG/125 MG TABLET PO SCH (20:46)
[2024-01-01] VITALS (21 sets, daily range): BP systolic 111–166; BP diastolic 40–72; PULSE 81–107; RESP 18–22; TEMP 97.2–100.8; O2SAT 95–100
[2024-01-01 05:41] LABS: GLUCOMETER DEV NAME(LOC) 6N.2B; GLUCOSE,POINT OF CARE 123 MG/DL (70-110)
[2024-01-01 05:41] LABS: GLUCOMETER DEV NAME(LOC) 6N.2B; GLUCOSE,POINT OF CARE 192 MG/DL (70-110)
[2024-01-01 07:14] LABS: BASOPHILS % (AUTO) 2.1 % (0.0-2.0); EOSINOPHILS % (AUTO) 11.5 % (1.0-6.0); HEMOGLOBIN 10.5 g/dL (13.5-17.5); LYMPHOCYTES # (AUTO) 1.5 K/uL (1.0-4.8); LYMPHOCYTES % (AUTO) 18.1 % (22.0-44.0); MEAN CORPUSCULAR HEMOGLOBIN 28.4 pg (26.0-34.0); MEAN CORPUSCULAR HGB CONC 31.9 G/dL (31.0-37.0); MEAN CORPUSCULAR VOLUME 89 fL (80-100); MONOCYTES # (AUTO) 0.8 K/uL (0.1-1.0); MONOCYTES % (AUTO) 9.5 % (2.0-9.0); NEUTROPHILS # (AUTO) 4.8 K/uL (1.8-7.7); NEUTROPHILS % (AUTO) 58.8 % (40.0-70.0); PLATELET COUNT (AUTO) 537 K/uL (150-450); RED BLOOD CELL COUNT(AUTO) 3.71 MIL/uL (4.50-5.90); RED CELL DISTRIBUTION WIDTH 16.9 % (11.5-14.5); WHITE BLOOD COUNT (AUTO) 8.2 K/uL (4.5-11.0)
[2024-01-01 07:40] LABS: CALCIUM, TOTAL 7.9 mg/dL (8.8-10.5); CREATININE 4.51 mg/dL (0.60-1.30); POTASSIUM 4.5 mmol/L (3.5-5.1)
[2024-01-01] MEDS ORDERED: SODIUM CHLORIDE 0.9% 1,000 ML ONE (09:31)
[2024-01-01] MEDS ORDERED: AMLO-257 PO (11:08)
[2024-01-01] MEDS ORDERED: ALBU2.5V39 NEB (11:08)
[2024-01-01] MEDS ORDERED: DOCU-385 PO (11:08)
[2024-01-01] MEDS ORDERED: EPOE10003 SQ (11:12)
[2024-01-01] MEDS ORDERED: ETHY1MED2 NASAL (11:13)
[2024-01-01] MEDS ORDERED: HEPA500018 SQ (11:14)
[2024-01-01] MEDS ORDERED: FOLI0.8T2 PO (11:14)
[2024-01-01] MEDS ORDERED: PANT-31 PO (11:15)
[2024-01-01] MEDS ORDERED: IPRA0.2S49 NEB (11:15)
[2024-01-01] MEDS ORDERED: ACET-2247 PO (11:16)
[2024-01-01] MEDS ORDERED: GUAIF10 PO (11:17)
[2024-01-01 13:31] LABS: GLUCOMETER DEV NAME(LOC) 6S.2; GLUCOSE,POINT OF CARE 151 MG/DL (70-110)
[2024-01-01 13:31] LABS: GLUCOMETER DEV NAME(LOC) 6S.2; GLUCOSE,POINT OF CARE 87 MG/DL (70-110)
[2024-01-01 13:31] LABS: GLUCOMETER DEV NAME(LOC) 6S.2; GLUCOSE,POINT OF CARE 98 MG/DL (70-110)
[2024-01-01 17:50] LABS: GLUCOMETER DEV NAME(LOC) 4E.2; GLUCOSE,POINT OF CARE 136 MG/DL (70-110)
[2024-01-01 21:22] LABS: COVID AG,FIA SOURCE NASAL SWAB
[2024-01-01 21:36] LABS: APPEARANCE,URINE CLEAR (CLEAR); BILIRUBIN,URINE NEGATIVE (NEGATIVE); COLOR,URINE LIGHT YELLOW (YELLOW); GLUCOSE, URINE (UA) 70-100 mg/dL (NEGATIVE); KETONES,URINE NEGATIVE (NEGATIVE); LEUKOCYTE ESTERASE ,URINE NEGATIVE (NEGATIVE); NITRATE,URINE NEGATIVE (NEGATIVE); OCCULT BLOOD,URINE NEGATIVE (NEGATIVE); PH,URINE 8.5 (5.0-8.0); PROTEIN,URINE 300-600,SEE CONFIRM mg/dL (NEGATIVE); SPECIFIC GRAVITIY, URINE 1.008 (1.003-1.030); UROBILINOGEN,URINE <=1.0 mg/dL (<=1.0)
[2024-01-01 21:52] LABS: INFLUENZA TYPE A NEGATIVE FOR TYPE A (NEGATIVE); INFLUENZA TYPE B NEGATIVE FOR TYPE B (NEGATIVE); SARS-COV2 (COVID) ANTIGEN,FIA Negative (Negative)
[2024-01-01 21:54] LABS: SULFOSALICYLIC ACID,URINE 3+ (Negative)
[2024-01-01 21:55] LABS: BACTERIA,URINE None Seen /HPF (None Seen); RBC,URINE None Seen /HPF (0-2); SQUAMOUS EPITHELIAL CELL,UR None Seen /LPF (None Seen); WBC,URINE None Seen /HPF (0-5)
[2024-01-02 00:05] VITALS: BP 108/74; PULSE 113; RESP 14; TEMP 99.4
[2024-01-02 00:06] VITALS: BP 91/43; PULSE 85; RESP 0
[2024-01-02 00:08] VITALS: BP 87/60; RESP 0
[2024-01-02 00:09] VITALS: BP 62/37; RESP 0
[2024-01-02 00:25] VITALS: BP 0/0; PULSE 0; RESP 0
[2024-01-02 04:36] LABS: GLUCOMETER DEV NAME(LOC) 4E.2; GLUCOSE,POINT OF CARE 153 MG/DL (70-110)
== END 2024-01-02 03:55 | DRG 130 ==
LOC: EMS 20:39 → 5S 11-25 00:36 → ICU 11-26 01:13 → 5S 11-30 05:00 → 6N 12-11 21:07 → 6S 12-14 09:25 → ICU 12-15 22:23 → 5S 12-24 17:50 → 6S 12-27 19:30
PROVIDERS: ADMIT Internal Medicine; ATTEND Internal Medicine
PROC: 30233N1 Transfusion of Nonautologous Red Blood Cells into Peripheral Vein, Percutaneous Approach (ICD-10-PCS; 2023-11-25)
PROC: 5A09357 Assistance with Respiratory Ventilation, Less than 24 Consecutive Hours, Continuous Positive Airway Pressure (ICD-10-PCS; 2023-11-25)
PROC: 5A1D70Z Performance of Urinary Filtration, Intermittent, Less than 6 Hours Per Day (ICD-10-PCS; 2023-11-26)
PROC: 5A1945Z Respiratory Ventilation, 24-96 Consecutive Hours (ICD-10-PCS; 2023-11-26)
PROC: 0BH17EZ Insertion of Endotracheal Airway into Trachea, Via Natural or Artificial Opening (ICD-10-PCS; 2023-11-26)
PROC: 5A1D70Z Performance of Urinary Filtration, Intermittent, Less than 6 Hours Per Day (ICD-10-PCS; 2023-11-27)
PROC: 0DB98ZX Excision of Duodenum, Via Natural or Artificial Opening Endoscopic, Diagnostic (ICD-10-PCS; 2023-11-27)
PROC: 0DB68ZX Excision of Stomach, Via Natural or Artificial Opening Endoscopic, Diagnostic (ICD-10-PCS; 2023-11-27)
PROC: 5A1D70Z Performance of Urinary Filtration, Intermittent, Less than 6 Hours Per Day (ICD-10-PCS; 2023-11-28)
PROC: 5A1D70Z Performance of Urinary Filtration, Intermittent, Less than 6 Hours Per Day (ICD-10-PCS; 2023-11-29)
PROC: 5A1D70Z Performance of Urinary Filtration, Intermittent, Less than 6 Hours Per Day (ICD-10-PCS; 2023-12-02)
PROC: 5A1D70Z Performance of Urinary Filtration, Intermittent, Less than 6 Hours Per Day (ICD-10-PCS; 2023-12-04)
PROC: 0JH63XZ Insertion of Tunneled Vascular Access Device into Chest Subcutaneous Tissue and Fascia, Percutaneous Approach (ICD-10-PCS; 2023-12-05)
PROC: 02HV33Z Insertion of Infusion Device into Superior Vena Cava, Percutaneous Approach (ICD-10-PCS; 2023-12-05)
PROC: B548ZZA Ultrasonography of Superior Vena Cava, Guidance (ICD-10-PCS; 2023-12-05)
PROC: 0DH63UZ Insertion of Feeding Device into Stomach, Percutaneous Approach (ICD-10-PCS; 2023-12-06)
PROC: 5A1D70Z Performance of Urinary Filtration, Intermittent, Less than 6 Hours Per Day (ICD-10-PCS; 2023-12-06)
PROC: 5A1D70Z Performance of Urinary Filtration, Intermittent, Less than 6 Hours Per Day (ICD-10-PCS; 2023-12-09)
PROC: 5A1D70Z Performance of Urinary Filtration, Intermittent, Less than 6 Hours Per Day (ICD-10-PCS; 2023-12-11)
PROC: 5A1955Z Respiratory Ventilation, Greater than 96 Consecutive Hours (ICD-10-PCS; principal; 2023-12-15)
PROC: 5A1D70Z Performance of Urinary Filtration, Intermittent, Less than 6 Hours Per Day (ICD-10-PCS; 2023-12-16)
PROC: 5A1D70Z Performance of Urinary Filtration, Intermittent, Less than 6 Hours Per Day (ICD-10-PCS; 2023-12-18)
PROC: 5A1D70Z Performance of Urinary Filtration, Intermittent, Less than 6 Hours Per Day (ICD-10-PCS; 2023-12-20)
PROC: 5A0935A Assistance with Respiratory Ventilation, Less than 24 Consecutive Hours, High Flow/Velocity Cannula (ICD-10-PCS; 2023-12-22)
PROC: 5A1D70Z Performance of Urinary Filtration, Intermittent, Less than 6 Hours Per Day (ICD-10-PCS; 2023-12-22)
PROC: 5A1D70Z Performance of Urinary Filtration, Intermittent, Less than 6 Hours Per Day (ICD-10-PCS; 2023-12-23)
PROC: 5A1D70Z Performance of Urinary Filtration, Intermittent, Less than 6 Hours Per Day (ICD-10-PCS; 2023-12-25)
PROC: 5A1D70Z Performance of Urinary Filtration, Intermittent, Less than 6 Hours Per Day (ICD-10-PCS; 2023-12-27)
PROC: 5A1D70Z Performance of Urinary Filtration, Intermittent, Less than 6 Hours Per Day (ICD-10-PCS; 2024-01-01)
DX: J96.01 Acute respiratory failure with hypoxia (principal); N17.0 Acute kidney failure with tubular necrosis; R65.11 Systemic inflammatory response syndrome (SIRS) of non-infectious origin with acute organ dysfunction; J69.0 Pneumonitis due to inhalation of food and vomit; G92.8 Other toxic encephalopathy; E43 Unspecified severe protein-calorie malnutrition; R64 Cachexia; K29.01 Acute gastritis with bleeding; I67.4 Hypertensive encephalopathy; I95.9 Hypotension, unspecified; E11.649 Type 2 diabetes mellitus with hypoglycemia without coma; D62 Acute posthemorrhagic anemia; E87.20 Acidosis, unspecified; I12.0 Hypertensive chronic kidney disease with stage 5 chronic kidney disease or end stage renal disease; E11.22 Type 2 diabetes mellitus with diabetic chronic kidney disease; I16.1 Hypertensive emergency; N18.6 End stage renal disease; E87.4 Mixed disorder of acid-base balance; I46.9 Cardiac arrest, cause unspecified; E87.6 Hypokalemia; K29.81 Duodenitis with bleeding; R13.10 Dysphagia, unspecified; Z93.1 Gastrostomy status; Z20.822 Contact with and (suspected) exposure to COVID-19; B37.0 Candidal stomatitis; E83.39 Other disorders of phosphorus metabolism; E78.5 Hyperlipidemia, unspecified; E86.0 Dehydration; D63.1 Anemia in chronic kidney disease; E87.1 Hypo-osmolality and hyponatremia; I25.10 Atherosclerotic heart disease of native coronary artery without angina pectoris; I25.2 Old myocardial infarction; Z66 Do not resuscitate; Z79.899 Other long term (current) drug therapy; Z83.3 Family history of diabetes mellitus; Z87.441 Personal history of nephrotic syndrome; Z87.891 Personal history of nicotine dependence; Z89.511 Acquired absence of right leg below knee; Z99.11 Dependence on respirator [ventilator] status; Z99.2 Dependence on renal dialysis; Z68.43 Body mass index [BMI] 50.0-59.9, adult; Z59.00 Homelessness unspecified
CPT/HCPCS: 31624; 36561; 36600; 70450; 71045; 71275; 76000; 76770; 76937; 80048; 80053; 81001; 81002; 82140; 82271; 82550; 82805; 82962; 83036; 83540; 83550; 83615; 83735; 83880; 84100; 84132; 84145; 84484; 85025; 85045; 85610; 85730; 86850; 86900; 86901; 86923; 87015; 87040; 87070; 87081; 87086; 87101; 87186; 87205; 87206; 87220; 87340; 87804; 88108; 88305; 88312; 88313; 90935; 92526; 92610; 92950; 93005; 93306; 93970; 94002; 94003; 94640; 94660; 94668; 94799; 99285; C9113; G0238; G0480; J0171; J0360; J0461; J0610; J0690; J0696; J0885; J1200; J1265; J1610; J1642; J1644; J2060; J2150; J2250; J2370; J2543; J2597; J2704; J3010; J3490; J7030; J7040; J7042; J7050; J7060; P9016; P9041; Q9967; 36415-L1; 36415-TC; J7613; X7700